=== PATIENT | female | born 1955 | race Caucasian/White ===

== ENCOUNTER 2016-12-22 12:29 | Outpatient (RCR) | payer MEDICARE ==
[~2016-12-22 12:29] MED LIST: ATIV1TAB10 PO; COUM2.5T11 PO; DRIS50002 PO; LEVO75TA4 PO; MULT1CHW26 PO; NICO21DI TD; PERC5TAB6 PO; PRENTAB9 PO; SYNT50TA PO; TRAM50TA2 PO; VICO5TA PO; VICO5TAB16 PO; WARF-23 PO
== END 2016-12-26 ==
LOC: M PT 12:29
PROVIDERS: ATTEND Orthopaedic Surgery
DX: Z51.89 Encounter for other specified aftercare (principal); S72.002D Fracture of unspecified part of neck of left femur, subsequent encounter for closed fracture with routine healing
CPT/HCPCS: 97110; 97116; 97161; G8978; G8979

== ENCOUNTER 2017-01-22 13:00 | Outpatient (RCR) | payer MEDICARE | END 2017-01-23 | LOC: M PT 13:00 | PROVIDERS: ATTEND Orthopaedic Surgery | DX: S72.002D Fracture of unspecified part of neck of left femur, subsequent encounter for closed fracture with routine healing (principal); X58.XXXD Exposure to other specified factors, subsequent encounter; Y93.9 Activity, unspecified; Y92.9 Unspecified place or not applicable; Y99.8 Other external cause status ==

== ENCOUNTER 2017-02-21 13:45 | Outpatient (RCR) | payer MEDICARE | END 2017-02-23 | LOC: M PT 13:45 | PROVIDERS: ATTEND Orthopaedic Surgery | DX: S72.002D Fracture of unspecified part of neck of left femur, subsequent encounter for closed fracture with routine healing (principal); X58.XXXD Exposure to other specified factors, subsequent encounter; Y93.9 Activity, unspecified; Y92.9 Unspecified place or not applicable; Y99.8 Other external cause status | CPT/HCPCS: 97110; 97116; G8978; G8979 ==

== ENCOUNTER 2017-03-23 13:45 | Outpatient (RCR) | payer MEDICARE | END 2017-03-25 | LOC: M PT 13:45 | PROVIDERS: ATTEND Orthopaedic Surgery | DX: S72.002A Fracture of unspecified part of neck of left femur, initial encounter for closed fracture (principal); X58.XXXA Exposure to other specified factors, initial encounter; Y93.9 Activity, unspecified; Y92.9 Unspecified place or not applicable; Y99.8 Other external cause status | CPT/HCPCS: 97110; 97116; G8978; G8979 ==

== ENCOUNTER 2017-04-18 13:36 | Outpatient (RCR) | payer MEDICARE | END 2017-04-25 | LOC: M PT 13:36 | PROVIDERS: ATTEND Orthopaedic Surgery | DX: S72.002D Fracture of unspecified part of neck of left femur, subsequent encounter for closed fracture with routine healing (principal); X58.XXXD Exposure to other specified factors, subsequent encounter; Y93.9 Activity, unspecified; Y92.9 Unspecified place or not applicable; Y99.8 Other external cause status | CPT/HCPCS: 97110; 97116; G8978; G8979 ==

== ENCOUNTER 2017-05-23 13:45 | Outpatient (RCR) | payer MEDICARE ==
[~2017-05-23 13:45] MED LIST changes: -COUM2.5T11 PO; +COUM2.5T17 PO; +PERC5TAB12 PO; -PERC5TAB6 PO
== END 2017-05-25 ==
LOC: M PT 13:45
PROVIDERS: ATTEND Orthopaedic Surgery
DX: S72.002D Fracture of unspecified part of neck of left femur, subsequent encounter for closed fracture with routine healing (principal); X58.XXXD Exposure to other specified factors, subsequent encounter; Y93.9 Activity, unspecified; Y92.9 Unspecified place or not applicable; Y99.8 Other external cause status
CPT/HCPCS: 97110; 97116; 97164; G8978; G8979

== ENCOUNTER → 2017-06-25 | Outpatient (RCR) | payer MEDICARE, SELFPAY | END | disposition home or self-care (01) | LOC: M PT 06-04 15:07 | PROVIDERS: ATTEND Orthopaedic Surgery | DX: Z51.89 Encounter for other specified aftercare (principal); S72.002D Fracture of unspecified part of neck of left femur, subsequent encounter for closed fracture with routine healing; X58.XXXD Exposure to other specified factors, subsequent encounter; Y93.9 Activity, unspecified; Y92.9 Unspecified place or not applicable; Y99.8 Other external cause status ==

== ENCOUNTER 2017-06-26 13:48 | Outpatient (RCR) | payer MEDICARE, SELFPAY | END 2017-07-26 | LOC: M PT 13:48 | PROVIDERS: ATTEND Orthopaedic Surgery | DX: S72.002D Fracture of unspecified part of neck of left femur, subsequent encounter for closed fracture with routine healing (principal); Z88.5 Allergy status to narcotic agent; X58.XXXD Exposure to other specified factors, subsequent encounter; Y93.9 Activity, unspecified; Y92.9 Unspecified place or not applicable; Y99.8 Other external cause status | CPT/HCPCS: 97110; 97116; G8978; G8979; G8980 ==

== ENCOUNTER 2017-10-25 16:04 | Emergency (ER) | payer MEDICAID, OTHER, SELFPAY ==
[~2017-10-25] VITALS: Ht 167.6 cm; Wt 50.0 kg
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
[2017-10-25 20:01] VITALS: BP 141/74
== END 2017-10-25 20:07 | disposition home or self-care (01) ==
LOC: M ED 16:04
DX: S80.12XA Contusion of left lower leg, initial encounter (principal); S22.41XA Multiple fractures of ribs, right side, initial encounter for closed fracture; Y00.XXXA Assault by blunt object, initial encounter; Y92.89 Other specified places as the place of occurrence of the external cause; Y93.89 Activity, other specified; Y99.8 Other external cause status; E03.9 Hypothyroidism, unspecified; F41.9 Anxiety disorder, unspecified; M85.9 Disorder of bone density and structure, unspecified; Z79.899 Other long term (current) drug therapy; Z88.5 Allergy status to narcotic agent; F17.210 Nicotine dependence, cigarettes, uncomplicated

== ENCOUNTER → 2017-11-12 | Outpatient (CLI) | payer MEDICARE, OTHER ==
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
== END ==
LOC: M WUC 15:31
PROVIDERS: ATTEND Family Medicine
DX: J44.9 Chronic obstructive pulmonary disease, unspecified (principal)

== ENCOUNTER → 2018-10-18 | Outpatient (CLI) | payer OTHER ==
[2018-10-18 12:51] LABS: HEMATOCRIT 38.3 % (36.0-47.0); HEMOGLOBIN 12.6 g/dl (12.0-15.5); MEAN CORPUSCULAR HEMOGLOBIN 33.5 pg (27.0-33.0); MEAN CORPUSCULAR HGB CONC 32.9 g/dl (32.0-36.5); MEAN CORPUSCULAR VOLUME 101.9 fl (80.0-96.0); PLATELET COUNT, AUTOMATED 473 10^3/uL (150-450); RED BLOOD COUNT 3.76 10^6/uL (4.00-5.40); RED CELL DISTRIBUTION WIDTH 12.7 % (11.5-14.5)
[2018-10-18 13:30] LABS: ALBUMIN 2.1 GM/DL (3.2-5.2); ALBUMIN/GLOBULIN RATIO 0.66 (1.00-1.93); ALKALINE PHOSPHATASE 162 U/L (45-117); ALT/SGPT 34 U/L (12-78); ANION GAP 12 MEQ/L (8-16); AST/SGOT 32 U/L (7-37); BILIRUBIN,TOTAL 0.3 MG/DL (0.2-1.0); BLOOD UREA NITROGEN 7 MG/DL (7-18); CALCIUM LEVEL 9.2 MG/DL (8.8-10.2); CARBON DIOXIDE LEVEL 22 MEQ/L (21-32); CHLORIDE LEVEL 105 MEQ/L (98-107); CHOLESTEROL LEVEL 179 MG/DL (<200); CREATININE FOR GFR 0.46 MG/DL (0.55-1.30); GLOMERULAR FILTRATION RATE > 60.0 (>45); GLUCOSE, FASTING 137 MG/DL (70-100); HDL CHOLESTEROL 57 MG/DL (>40); IRON (FE) 59 UG/DL (50-170); LDL CHOLESTEROL 90 MG/DL (<100); NON-HDL-C 122 MG/DL; PERCENT SATURATION 53.2 % (13.2-45.0); POTASSIUM SERUM 4.5 MEQ/L (3.5-5.1); SODIUM LEVEL 139 MEQ/L (136-145); THYROID STIMULATING HORMONE 0.392 uIU/ML (0.358-3.740); TOTAL 25(OH) VITAMIN D 70.5 NG/ML (30.0-100.0); TOTAL IRON BINDING CAPACITY 111 UG/DL (250-450); TOTAL PROTEIN 5.3 GM/DL (6.4-8.2); TRIGLYCERIDES LEVEL 161 MG/DL (<150)
== END ==
LOC: M WUC 10:43
DX: D64.9 Anemia, unspecified (principal); R53.83 Other fatigue; E03.9 Hypothyroidism, unspecified
CPT/HCPCS: 83550

== ENCOUNTER 2018-12-28 04:23 | Emergency (ER) | payer MEDICARE, OTHER ==
[~2018-12-28] VITALS: Ht 170.2 cm; Wt 40.9 kg
[~2018-12-28 04:23] MED LIST changes: +ALPR0.5T3; -DRIS50002 PO; +DRIS50003 PO; +TRAM50TA2
[2018-12-28 04:56] LABS: VENOUS BASE EXCESS -3.4 (-2.0-2.0); VENOUS O2 SATURATION 91.8 % (60.0-80.0); VENOUS PARTIAL PRESSURE CO2 40.9 mmHg (38.0-50.0); VENOUS PH 7.349 UNITS (7.330-7.430); VENOUS STANDARD HCO3 21.6 MEQ/L; VENOUS TOTAL CO2 23.3 MEQ/L (24.0-28.0)
[2018-12-28 04:58] LABS: CARBOXYHEMOGLOBIN 8.9 % (0.0-1.5)
[2018-12-28] MEDS ORDERED: fentaNYL 100 MCG/2 ML INJECTION (J3010) IV ONE (05:00)
[2018-12-28] MEDS ORDERED: NS 1,000 ML IV ONE (05:00)
[2018-12-28 05:15] VITALS: BP 127/81
[2018-12-28 05:16] LABS: BLOOD UREA NITROGEN 5 MG/DL (7-18); CALCIUM LEVEL 9.2 MG/DL (8.8-10.2); CARBON DIOXIDE LEVEL 24 MEQ/L (21-32); CHLORIDE LEVEL 99 MEQ/L (98-107); CREATININE FOR GFR 0.37 MG/DL (0.55-1.30); ETHYL ALCOHOL (ETHANOL) 0.214 % (0.000-0.010); GLOMERULAR FILTRATION RATE > 60.0 (>45); GLUCOSE, FASTING 178 MG/DL (70-100); POTASSIUM SERUM 3.9 MEQ/L (3.5-5.1); SODIUM LEVEL 133 MEQ/L (136-145)
== END 2018-12-28 05:32 | disposition short-term general hospital (02) ==
LOC: M ED 04:23
DX: T20.312A Burn of third degree of left ear [any part, except ear drum], initial encounter (principal); T20.20XA Burn of second degree of head, face, and neck, unspecified site, initial encounter; X08.8XXA Exposure to other specified smoke, fire and flames, initial encounter; Y92.018 Other place in single-family (private) house as the place of occurrence of the external cause; T31.0 Burns involving less than 10% of body surface; J44.9 Chronic obstructive pulmonary disease, unspecified; Z79.899 Other long term (current) drug therapy; Z79.890 Hormone replacement therapy; Z88.5 Allergy status to narcotic agent; F17.210 Nicotine dependence, cigarettes, uncomplicated
CPT/HCPCS: 80048; 82375; 82803; 96374; 99284; G0480; J3010

== ENCOUNTER 2019-05-10 10:09 | Emergency (ER) | payer MEDICARE ==
[~2019-05-10] VITALS: Ht 170.2 cm; Wt 46.8 kg
[~2019-05-10 10:09] MED LIST changes: -VICO5TAB16 PO; +VICO5TAB17 PO
[2019-05-10] MEDS ORDERED: MELO7.5T35 (10:33)
[2019-05-10] MEDS ORDERED: IBUPROFEN 400 MG TAB PO ONE (11:15)
--- NOTE | 2019-05-10 11:21 | REP ---
RIGHT WRIST SERIES: For views of the right wrist are performed. There is a diffuse osteopenia. There is impacted nondisplaced fracture of the distal radius. Adjacent ulna appears intact. There are moderate degenerative changes with joint space narrowing and subchondral sclerosis between the scaphoid and trapezium as well as between the trapezium and base of first metacarpal. Large spurs are seen at the margins of the joint. IMPRESSION: Nondisplaced fracture distal radius. Electronically Signed by Blaine Morrell MD 05/10/2019 07:26 P
[2019-05-10 11:47] VITALS: BP 124/67
== END 2019-05-10 11:51 | disposition home or self-care (01) ==
LOC: M ED 10:09
DX: S52.502A Unspecified fracture of the lower end of left radius, initial encounter for closed fracture (principal); W01.0XXA Fall on same level from slipping, tripping and stumbling without subsequent striking against object, initial encounter; Y92.018 Other place in single-family (private) house as the place of occurrence of the external cause; J44.9 Chronic obstructive pulmonary disease, unspecified; F10.10 Alcohol abuse, uncomplicated; Z88.5 Allergy status to narcotic agent; F17.210 Nicotine dependence, cigarettes, uncomplicated

== ENCOUNTER 2019-12-26 13:39 | Emergency (ER) | payer MEDICARE ==
[~2019-12-26] VITALS: Ht 170.2 cm; Wt 50.5 kg
[~2019-12-26 13:39] MED LIST changes: +MELO7.5T35
[2019-12-26 15:49] LABS: BASO # 0.1 10^3/uL (0.0-0.2); BASO % 0.9 % (0.0-1.0); EOS # 0.1 10^3/uL (0.0-0.5); EOS % 1.7 % (0.0-3.0); HEMATOCRIT 44.5 % (36.0-47.0); HEMOGLOBIN 14.8 g/dl (12.0-15.5); LYMPH # 1.8 10^3/uL (1.5-5.0); LYMPH % 27.6 % (24.0-44.0); MEAN CORPUSCULAR HEMOGLOBIN 34.2 pg (27.0-33.0); MEAN CORPUSCULAR HGB CONC 33.3 g/dl (32.0-36.5); MEAN CORPUSCULAR VOLUME 102.8 fl (80.0-96.0); MONO # 0.6 10^3/uL (0.0-0.8); MONO % 8.7 % (0.0-5.0); NEUTROPHILS # 3.8 10^3/uL (1.5-8.5); NEUTROPHILS % 60.5 % (36.0-66.0); PLATELET COUNT, AUTOMATED 207 10^3/uL (150-450); RED BLOOD COUNT 4.33 10^6/uL (4.00-5.40); WHITE BLOOD COUNT 6.3 10^3/uL (4.0-10.0)
[2019-12-26 16:11] LABS: BLOOD UREA NITROGEN 5 MG/DL (7-18); C REACTIVE PROTEIN QUANTITATIV 0.99 MG/DL (0.00-0.30); CALCIUM LEVEL 9.5 MG/DL (8.8-10.2); CARBON DIOXIDE LEVEL 25 MEQ/L (21-32); CHLORIDE LEVEL 105 MEQ/L (98-107); CREATININE FOR GFR 0.47 MG/DL (0.55-1.30); GLOMERULAR FILTRATION RATE > 60.0 (>45); GLUCOSE, FASTING 116 MG/DL (70-100); POTASSIUM SERUM 4.1 MEQ/L (3.5-5.1); SODIUM LEVEL 137 MEQ/L (136-145)
[2019-12-26 17:00] LABS: ERYTHROCYTE SEDIMENTATION RATE 5 mm/hr (0-30)
[2019-12-26] MEDS ORDERED: BACITRACIN OINT 30GM TOP PRN (19:30)
[2019-12-26] MEDS ORDERED: ADACEL/BOOSTRIX VACCINE (DIPHTH/PERTUSS/ACELL/TETANUS)0.5ML SYR (90715) IM ONE (19:30)
[2019-12-26] MEDS ORDERED: AUGMENTIN 875 MG TAB PO ONE (19:30)
[2019-12-26] MEDS ORDERED: BACI500O21 TOP (19:38)
[2019-12-26] MEDS ORDERED: IBUP-1022 PO (19:38)
[2019-12-26] MEDS ORDERED: AUGM875T28 PO (19:38)
[2019-12-26 20:40] VITALS: BP 146/79
== END 2019-12-26 20:46 | disposition home or self-care (01) ==
LOC: M ED 13:39
DX: T25.222A Burn of second degree of left foot, initial encounter (principal); T31.0 Burns involving less than 10% of body surface; X12.XXXA Contact with other hot fluids, initial encounter; Y92.099 Unspecified place in other non-institutional residence as the place of occurrence of the external cause; Y93.9 Activity, unspecified; Y99.9 Unspecified external cause status; Z79.899 Other long term (current) drug therapy; Z88.5 Allergy status to narcotic agent
CPT/HCPCS: 36415; 80048; 85025; 85652; 86140; 87040; 99283; G0480

== ENCOUNTER → 2020-03-11 | Outpatient (CLI) | payer MEDICAID, MEDICARE ==
[~2020-03-11] MED LIST changes: +AUGM875T28 PO; +BACI500O21 TOP; +IBUP-1022 PO
[2020-03-11 10:04] LABS: HEMATOCRIT 46.4 % (36.0-47.0); HEMOGLOBIN 15.3 g/dl (12.0-15.5); MEAN CORPUSCULAR HEMOGLOBIN 33.3 pg (27.0-33.0); MEAN CORPUSCULAR VOLUME 101.1 fl (80.0-96.0); PLATELET COUNT, AUTOMATED 201 10^3/uL (150-450); RED BLOOD COUNT 4.59 10^6/uL (4.00-5.40); WHITE BLOOD COUNT 7.6 10^3/uL (4.0-10.0)
[2020-03-11 10:48] LABS: VITAMIN B12 LEVEL 1733 PG/ML (247-911)
[2020-03-11 10:52] LABS: ALBUMIN 3.4 GM/DL (3.2-5.2); ALT/SGPT 33 U/L (12-78); BILIRUBIN,TOTAL 0.5 MG/DL (0.2-1.0); BLOOD UREA NITROGEN 6 MG/DL (7-18); CALCIUM LEVEL 10.1 MG/DL (8.8-10.2); CARBON DIOXIDE LEVEL 27 MEQ/L (21-32); CHLORIDE LEVEL 105 MEQ/L (98-107); CHOLESTEROL LEVEL 237 MG/DL (<200); CHOLESTEROL RISK RATIO 2.521 (<5); CREATININE FOR GFR 0.54 MG/DL (0.55-1.30); GLOMERULAR FILTRATION RATE > 60.0 (>45); GLUCOSE, FASTING 95 MG/DL (70-100); HDL CHOLESTEROL 94 MG/DL (>40); IRON (FE) 114 UG/DL (50-170); LDL CHOLESTEROL 112 MG/DL (<100); NON-HDL-C 143 MG/DL; PERCENT SATURATION 35.1 % (13.2-45.0); POTASSIUM SERUM 4.2 MEQ/L (3.5-5.1); SODIUM LEVEL 139 MEQ/L (136-145); TOTAL IRON BINDING CAPACITY 325 UG/DL (250-450); TOTAL PROTEIN 6.9 GM/DL (6.4-8.2); TRIGLYCERIDES LEVEL 155 MG/DL (<150)
[2020-03-11 11:26] LABS: HEMOGLOBIN A1c 5.2 %
--- NOTE | 2020-03-11 11:48 | REP ---
CHEST, TWO VIEWS: Two views of the chest are performed. COMPARISON: 11/12/2017 and 05/09/2018. There is hyperinflation with mild diffuse interstitial fibrosis. There is no acute infiltrate. The heart is normal in size. There is mild calcification of the thoracic aorta. The mediastinal silhouette is unremarkable and unchanged. There is metallic internal fixation again seen in the proximal left humerus. There is a fracture of the mid shaft of the right clavicle with mild inferior displacement and angulation. This is new since the prior studies. There does appear to be some healing callous formation. IMPRESSION: Stable chronic changes of the lungs. No acute pulmonary disease. Fracture mid right clavicle is slightly displaced and angulated. This is new compared to the prior study of 05/09/2018. There does appear to be healing callous formation. Electronically Signed by Blaine Morrell MD 03/11/2020 02:31 P
== END ==
LOC: M LAB 08:56
PROVIDERS: ATTEND Family Medicine
DX: D64.9 Anemia, unspecified (principal); E11.9 Type 2 diabetes mellitus without complications; R53.83 Other fatigue; E03.9 Hypothyroidism, unspecified

== ENCOUNTER 2020-05-15 17:55 | Emergency (ER) | payer MEDICARE, MEDICAID ==
[~2020-05-15] VITALS: Ht 170.2 cm; Wt 50.0 kg
[2020-05-15] MEDS ORDERED: traMADol 50 MG TAB PO ONE (18:45)
--- NOTE | 2020-05-15 18:51 | REPVR ---
PROCEDURE INFORMATION: Exam: XR Left Ribs with PA Chest, 3 Views Exam date and time: 05/15/2020 6:34 PM Age: 65 years old Clinical indication: Other: Left lateral chest wall pain; Additional info: Left lateral chest wall pain S/P fall TECHNIQUE: Imaging protocol: XR Left ribs 3 views with PA chest. COMPARISON: CR Chest, 2 view PA, Lat 03/11/2020 9:47 AM FINDINGS: Lungs: Unremarkable. No consolidation. Pleural space: Minimal blunting left lateral costophrenic angle. Heart/Mediastinum: Unremarkable. No cardiomegaly. Bones/joints: Surgical hardware noted in the left proximal humerus indicating previous open reduction internal fixation of a left humeral fracture Generalized decrease in bone density. There is pleural thickening in the left lateral hemithorax fractures of the lateral left, 6th, 7th and 8th ribs. Fracture of the right posterior lateral 7th (or 8th) rib. Healed fracture of the right clavicle. IMPRESSION: 1. Acute fractures of the left lateral 6th, 7th and 8th ribs. No pneumothorax 2. Fracture of the right posterior lateral 7th rib (or 8th). Age uncertain Electronically signed by: Melanie Lucas On 05/15/2020 18:51:13 PM
[2020-05-15 19:36] VITALS: BP 128/71
[2020-05-15] MEDS ORDERED: TRAM50TA2 PO (19:45)
== END 2020-05-15 19:57 | disposition home or self-care (01) ==
LOC: M ED 17:55
DX: S22.42XA Multiple fractures of ribs, left side, initial encounter for closed fracture (principal); S22.31XA Fracture of one rib, right side, initial encounter for closed fracture; Z87.81 Personal history of (healed) traumatic fracture; W06.XXXA Fall from bed, initial encounter; Y92.9 Unspecified place or not applicable; Y93.9 Activity, unspecified; Y99.9 Unspecified external cause status; J44.9 Chronic obstructive pulmonary disease, unspecified; Z87.01 Personal history of pneumonia (recurrent); F41.9 Anxiety disorder, unspecified; Z72.0 Tobacco use; Z79.899 Other long term (current) drug therapy

== ENCOUNTER → 2020-07-19 | Outpatient (REF) | payer MEDICARE, MEDICAID | LOC: M LAB REF 10:55 | PROVIDERS: ATTEND Physician Assistant | DX: B07.9 Viral wart, unspecified (principal) ==

== ENCOUNTER 2020-09-13 13:46 | Emergency (ER) | payer MEDICARE, MEDICAID ==
[~2020-09-13] VITALS: Ht 170.2 cm; Wt 50.9 kg
--- NOTE | 2020-09-13 15:07 | REPVR ---
PROCEDURE INFORMATION: Exam: XR Right Ankle Exam date and time: 09/13/2020 2:51 PM Age: 65 years old Clinical indication: Pain and injury or trauma; Fall; Sprain or strain; Ankle; Right; Additional info: Right foot/ankle pain; Fall injury TECHNIQUE: Imaging protocol: XR Right ankle. Views: 3 or more views. COMPARISON: No relevant prior studies available. FINDINGS: Bones/joints: Diffuse osteopenia. There is an ossification adjacent to the tip of the lateral malleolus, measuring approximately 11 mm x 5 mm. This likely represents an avulsion fracture, age indeterminate. No dislocation. Soft tissues: Lateral soft tissue swelling. IMPRESSION: Age-indeterminate avulsion fracture of the tip of the lateral malleolus. This could be further evaluated with CT if clinically warranted. Electronically signed by: Noemy Carballo On 09/13/2020 15:07:01 PM
--- NOTE | 2020-09-13 15:12 | REPVR ---
PROCEDURE INFORMATION: Exam: XR Right Foot Complete Exam date and time: 09/13/2020 2:51 PM Age: 65 years old Clinical indication: Pain and injury or trauma; Fall; Sprain or strain; Foot; Right; Additional info: Right foot/ankle pain; Fall injury TECHNIQUE: Imaging protocol: XR Right foot. Views: 3 or more views. COMPARISON: No relevant prior studies available. FINDINGS: Bones/joints: Diffuse osteopenia. Acute appearing nondisplaced fracture of the 5th proximal phalanx. Minimal degenerative change of the 2nd PIP joint. Ossification adjacent to the lateral malleolus, likely an avulsed fracture fragment, age-indeterminate. No dislocation. Soft tissues: Normal. IMPRESSION: 1. Acute appearing nondisplaced fracture of the 5th proximal phalanx. 2. Age-indeterminate avulsed fracture fragment adjacent to the lateral malleolus. Electronically signed by: Noemy Carballo On 09/13/2020 15:12:20 PM
[2020-09-13 16:16] VITALS: BP 118/74
== END 2020-09-13 14:15 | disposition home or self-care (01) ==
LOC: M ED 13:46
DX: S82.61XA Displaced fracture of lateral malleolus of right fibula, initial encounter for closed fracture (principal); S62.646A Nondisplaced fracture of proximal phalanx of right little finger, initial encounter for closed fracture; W19.XXXA Unspecified fall, initial encounter; Y92.009 Unspecified place in unspecified non-institutional (private) residence as the place of occurrence of the external cause; Y93.9 Activity, unspecified; Y99.9 Unspecified external cause status; K21.9 Gastro-esophageal reflux disease without esophagitis; E03.9 Hypothyroidism, unspecified; Z79.899 Other long term (current) drug therapy

== ENCOUNTER 2020-11-15 14:07 | Emergency (ER) | payer MEDICAID, MEDICARE ==
[~2020-11-15] VITALS: Ht 170.2 cm; Wt 49.5 kg
[~2020-11-15 14:07] MED LIST changes: -ALPR0.5T3; +ALPR0.5T3 PO
[2020-11-15 14:08] VITALS: BP 108/68
--- NOTE | 2020-11-15 15:00 | REP ---
INDICATION: PAIN/SWELLING COMPARISON: None. TECHNIQUE: Four views left hand. FINDINGS: There is fracture at the base of the 4th proximal phalanx with mild lateral displacement. No other acute fracture or dislocation is seen. There is moderate narrowing between scaphoid and adjacent trapezium and trapezoid bones. There is moderate narrowing with subchondral sclerosis and spurring between the trapezium and base of 1st metacarpal. There are mild diffuse arthritic changes at the interphalangeal joints. IMPRESSION: Fracture at the base of the 4th proximal phalanx with mild lateral displacement. <Electronically signed by Blaine Morrell > 11/15/20 [id number]
== END 2020-11-15 18:17 | disposition home or self-care (01) ==
LOC: M ED 14:07
DX: S62.315A Displaced fracture of base of fourth metacarpal bone, left hand, initial encounter for closed fracture (principal); W19.XXXA Unspecified fall, initial encounter; Y92.099 Unspecified place in other non-institutional residence as the place of occurrence of the external cause; Y93.9 Activity, unspecified; Y99.9 Unspecified external cause status; E03.9 Hypothyroidism, unspecified; F41.9 Anxiety disorder, unspecified; J44.9 Chronic obstructive pulmonary disease, unspecified; F17.200 Nicotine dependence, unspecified, uncomplicated; Z79.899 Other long term (current) drug therapy

== ENCOUNTER 2021-01-09 12:50 | Emergency (ER) | payer MEDICARE ==
[~2021-01-09] VITALS: Ht 170.2 cm; Wt 50.5 kg
--- OUTSIDE RECORDS SUMMARY | 2021-01-09 12:56 | CCD ---
Continuity of Care Document (CCD) Created on: 11/29/2020 Luna Davila External Reference #: [id number] : [id number] Sex: Female Author Author Luna MARTINEZ MD Organization Unknown Address [address] [place] [address] Phone [phone] Care Team Providers Care Cook House Laborer Name Role Phone Yosef Otto MD AUTM Unavailable Renzo Hester MD AUTM [phone] Problems Description No Active Problems Social History Type Date Description Comments Sex Unknown ETOH Use Occasionally consumes alcohol Tobacco Use Start: Unknown Patient is a current smoker, smo kes every day smokes 20+ cigarettes a day Smoking Status Reviewed: 05/12/19 Patient is a current smoker, smokes every day smokes 20+ cigarettes a day Allergies, Adverse Reactions, Alerts Description No Known Drug Allergies Medications Active Medications SIG Qnty Indications Ordering Provide r Date Acetaminophen-Codeine #3 300-30mg Tablets Take One Tablet By Mouth Every 12 Hours as Needed For Pain Max Daily Dose Two Tablets 40tabs Paul Han MD 9 Meloxicam 7.5mg Tablets 2 by mouth every day 30tabs S52.531D Silvana Padilla MD 019 Synthroid Tablets Unknown Vitamin D Tablets Unknown Xanax 0.5mg Tablets 1 by mouth 1/2 hour prior to mri Unknown Immunizations Description No Information Available Vital Signs Date Vital Result Comment 05/12/2019 10:47am Body Temperature 98.2 F Height 67 inches 5'7" Weight 105.00 lb BMI (Body Mass Index) 16.4 kg/m2 Results Description No Information Available Procedures Date Code Description Status 11/29/2020 07025 X-Ray Toe(S) Two Views Completed 11/29/2020 18940 X-Ray Foot Complete Completed 11/29/2020 00932 X-Ray Ankle Complete Completed 11/29/2020 13159 FX Metatarsal W/O Manipulation C ompleted 11/29/2020 91748 FX Tarsal Bone W/O Manuplation C ompleted 11/16/2020 80883 X-Ray Hand Three Views Completed 11/16/2020 05854 Apply Cast Short Arm Completed 11/16/2020 15380 FX Phalanx Shaft/Prox/Mid Finger /Thumb W/Manipulation Completed 10/08/2020 78058 X-Ray Foot Complete Completed 10/08/2020 70845 X-Ray Ankle Complete Completed Medical Devices Description No Information Available Encounters Description No Information Available Assessments Date Code Description Provider 11/29/2020 S92.514D Nondisplaced fractur e of proximal phalanx of right lesser toe(s), subsequent encounter for fracture with routine healing Alyssia Martinez MD 11/29/2020 S82.64xD Nondisplaced fractur e of lateral malleolus of right fibula, subsequent encounter for closed fracture with routine healing Alyssia Martinez MD 11/16/2020 S62.615A Displaced fracture o f proximal phalanx of left ring finger, initial encounter for closed fracture Tiffanie Gray PA-C 10/08/2020 S92.514A Nondisplaced fractur e of proximal phalanx of right lesser toe(s), initial encounter for closed fracture Alyssia Martinez MD 10/08/2020 S92.514A Nondisplaced fractur e of proximal phalanx of right lesser toe(s), initial encounter for closed fracture Alyssia Martinez MD 10/08/2020 S82.64xA Nondisplaced fractur e of lateral malleolus of right fibula, initial encounter for closed fracture Alyssia Martinez MD 10/08/2020 S82.64xA Nondisplaced fractur e of lateral malleolus of right fibula, initial encounter for closed fracture Alyssia Martinez MD 10/08/2020 M19.071 Primary osteoarthritis, right an kle and foot Alyssia Martinez MD 10/08/2020 M19.071 Primary osteoarthritis, right an kle and foot Alyssia Martinez MD Plan of Treatment 11/29/2020 - Alyssia Martinez MD* S92.514D Nondisplaced fracture of proximal phalanx of right lesser toe(s), subsequent encounter for fracture with routine healing* Follow up:* 3-4 weeks with [facility] for rt foot re-check w/xrays * S82.64xD Nondisplaced fracture of lateral malleolus of right fibula, subsequent encounter for closed fracture with routine healing Functional Status Description No Information Available Mental Status Description No Information Available Referrals Refer to Dr Reason for Referral Status Appt Date Alyssia Martinez MD RF NO AUTH REQUIRED FOR REF TO [facility] TO TRIAGE STAT NT Created [address] [place] [address] [address] [place] [address] [phone] Alyssia Martinez MD DME [employer] NO AUTH REQ. REF #[id number] AND MONICO BRICEÑO 20% COIN. LS Created [address] [place] [address] [address] [place] [address] [phone]
--- OUTSIDE RECORDS SUMMARY | 2021-01-09 12:56 | CCD ---
Continuity of Care Document (CCD) Created on: 12/13/2020 DavilaLuna orozco External Reference #: [id number] : 1955 Sex: Female Author Author Luna MEDEIROS PA-C Organization Unknown Address [address] [place] [address] Phone [phone] Care Team Providers Care Last Turner Name Role Phone Yosef Otto MD AUTM Unavailable Renzo Hester MD AUTM [phone] Problems Description No Active Problems Social History [...] Available Procedures Date Code Description Status 11/29/2020 23735 X-Ray Toe(S) Two Views Completed 11/29/2020 56444 X-Ray Foot Complete Completed 11/29/2020 29663 X-Ray Ankle Complete Completed 11/16/2020 96578 X-Ray Hand Three Views Completed 11/16/2020 64207 FX Phalanx Shaft/Prox/Mid Finger /Thumb W/Manipulation Completed 10/08/2020 38437 X-Ray Foot Complete Completed 10/08/2020 52788 X-Ray Ankle Complete Completed Medical Devices Description No Information Available Encounters Description No Information Available Assessments Date Code Description Provider 11/29/2020 S92.314D Nondisplaced fractur e of first metatarsal bone, right foot, subsequent encounter for fracture with routine healing Alyssia Brown MD 11/29/2020 S92.324D Nondisplaced fractur e of second metatarsal bone, right foot, subsequent encounter for fracture with routine healing Alyssia Brown MD 11/29/2020 S92.334D Nondisplaced fractur e of third metatarsal bone, right foot, subsequent encounter for fracture with routine healing Alyssia Brown MD 11/29/2020 S92.514D Nondisplaced fractur e of proximal phalanx of right lesser toe(s), subsequent encounter for fracture with routine healing Alyssia Brown MD 11/29/2020 S82.64xD Nondisplaced fractur e of lateral malleolus of right fibula, subsequent encounter for closed fracture with routine healing Alyssia Brown MD 11/16/2020 S62.615A Displaced fracture o f proximal phalanx of left ring finger, initial encounter for closed fracture Tiffanie Medeiros PA-C 10/08/2020 S92.514A Nondisplaced fractur e of proximal phalanx of right lesser toe(s), initial encounter for closed fracture Alyssia Brown MD 10/08/2020 S92.514A Nondisplaced fractur e of proximal phalanx of right lesser toe(s), initial encounter for closed fracture Alyssia Brown MD 10/08/2020 S82.64xA Nondisplaced fractur e of lateral malleolus of right fibula, initial encounter for closed fracture Alyssia Brown MD 10/08/2020 S82.64xA Nondisplaced fractur e of lateral malleolus of right fibula, initial encounter for closed fracture Alyssia Brown MD 10/08/2020 M19.071 Primary osteoarthritis, right an kle and foot Alyssia Brown MD 10/08/2020 M19.071 Primary osteoarthritis, right an kle and foot Alyssia Brown MD Plan of Treatment Future Appointment(s):* 12/20/2020 3:45 pm - Billy Leavitt PA-C at [facility] 07/08/2019 - Paul Han MD* S52.531D Colles' fracture of right radius, subsequent encounter for c* Follow up:* F/U WITH ANM IN 3 WEEKS WITH XRAY OUT OF SPLINT RIGHT WRIST AP-L Functional Status Description No Information Available Mental Status Description No Information Available Referrals Refer to Reason for Referral Status Appt Date Alyssia Brown MD RF NO AUTH REQUIRED FOR REF TO [facility] TO TRIAGE STAT NT Created [address] [facility] [address] [place] [address] [phone] Alyssia Brown MD [facility] [employer] NO AUTH REQ. REF #[id number] AND PER NAVARRO 20% COIN. LS Created [address] [facility] [address] [place] [address] [phone]
--- OUTSIDE RECORDS SUMMARY | 2021-01-09 12:56 | CCD | Continuity of Care Document ---
Author Author Luna MARTINEZ MD Organization Unknown Address [address] [place] [address] Phone [phone] Care Team Providers Care Electro Mechanical Solar Technician Name Role Phone Yosef Otto MD AUTM Unavailable Renzo Hester MD AUTM [phone] Problems Description No Active Problems Social History [...] Information Available Procedures Date Code Description Status 10/08/2020 13253 X-Ray Foot Complete Completed 10/08/2020 69453 X-Ray Ankle Complete Completed Medical Devices Description No Information Available Encounters Description No Information Available Assessments Date Code Description Provider 10/08/2020 S92.514A Nondisplaced fractur e of proximal [...] foot Alyssia Martinez MD Plan of Treatment 07/08/2019 - Paul Han MD* S52.531D Colles' fracture of right radius, subsequent encounter for c* Follow up:* F/U WITH ANM IN 3 WEEKS WITH XRAY OUT OF SPLINT RIGHT WRIST AP-L Functional Status Description No Information Available Mental Status Description No Information Available Referrals Refer to Reason for Referral Status Appt Date Alyssia Martinez MD [facility] [employer] NO AUTH REQ. REF #[id number] AND PER NAVARRO 20% COIN. LS Created [address] [place] [address] [address] [place] [id number] [phone]
--- OUTSIDE RECORDS SUMMARY | 2021-01-09 12:56 | CCD ---
Author Author [facility] Organization [facility] Address Unknown Phone Unavailable Care Team Providers Care Foundry Helper Name Role Phone Toni CANTU MD Unavailable Unavailable Toni CANTU MD Unavailable Unavailable Toni CANTU MD Unavailable Unavailable Toni CANTU MD Unavailable Unavailable Toni CANTU MD Unavailable Unavailable Toni CANTU MD Unavailable Unavailable Toni CANTU MD Unavailable Unavailable Toni CANTU MD Unavailable Unavailable Toni CANTU MD Unavailable Unavailable Toni CANTU MD Unavailable Unavailable Toni CANTU MD Unavailable Unavailable Toni CANTU MD Unavailable Unavailable Toni CANTU MD Unavailable Unavailable Toni CANTU MD Unavailable Unavailable Toni CANTU MD Unavailable Unavailable Toni CANTU MD Unavailable Unavailable Toni CANTU MD Unavailable Unavailable Toni CANTU MD Unavailable Unavailable Toni CANTU MD Unavailable Unavailable Toni CANTU MD Unavailable Unavailable Toni CANTU MD Unavailable Unavailable Toni CANTU MD Unavailable Unavailable Toni CANTU MD Unavailable Unavailable Toni CANTU MD Unavailable Unavailable Toni CANTU MD Unavailable Unavailable Toni CANTU MD Unavailable Unavailable Toni CANTU MD Unavailable Unavailable Toni CANTU MD Unavailable Unavailable Toni CANTU MD Unavailable Unavailable Toni CANTU MD Unavailable Unavailable Toni CANTU MD Unavailable Unavailable Toni CANTU MD Unavailable Unavailable Toni CANTU MD Unavailable Unavailable Toni CANTU MD Unavailable Unavailable Toni CANTU MD Unavailable Unavailable SETTERToni MD Unavailable Unavailable SETTERToni MD Unavailable Unavailable SETTERToni MD Unavailable Unavailable SETTERToni MD Unavailable Unavailable SETTERToni MD Unavailable Unavailable SETTER, Toni SANCHEZ MD Unavailable Unavailable SETTER, Toni SANCHEZ MD Unavailable Unavailable SETTER, Toni SANCHEZ MD Unavailable Unavailable SETTERToni MD Unavailable Unavailable SETTERToni MD Unavailable Unavailable SETTERToni MD Unavailable Unavailable SETTER, Toni SANCHEZ MD Unavailable Unavailable SETTER, Toni SANCHEZ MD Unavailable Unavailable SETTER, Toni SNACHEZ MD Unavailable Unavailable SETTER, Toni SANCHEZ MD Unavailable Unavailable SETTER, Toni SANCHEZ MD Unavailable Unavailable SETTER, Toni SANCHEZ MD Unavailable Unavailable SETTER, Toni SANCHEZ MD Unavailable Unavailable SETTER, Toni SANCHEZ MD Unavailable Unavailable SETTER, Toni SANCHEZ MD Unavailable Unavailable SETTER, Toni SANCHEZ MD Unavailable Unavailable SETTERToni MD Unavailable Unavailable SETTERToni MD Unavailable Unavailable SETTERToni MD Unavailable Unavailable SETTERToni MD Unavailable Unavailable SETTER, Toni SANCHEZ MD Unavailable Unavailable SETTERToni MD Unavailable Unavailable SETTERToni MD Unavailable Unavailable SETTERToni MD Unavailable Unavailable SETTERToni MD Unavailable Unavailable SETTERToni MD Unavailable Unavailable SETTERToni MD Unavailable Unavailable SETTERToni MD Unavailable Unavailable SETTERToni MD Unavailable Unavailable SETTERToni MD Unavailable Unavailable SETTERToni MD Unavailable Unavailable SETTERToni MD Unavailable Unavailable SETTERToni MD Unavailable Unavailable SETTERToni MD Unavailable Unavailable SETTERToni MD Unavailable Unavailable SETTERToni MD Unavailable Unavailable SETTERToni MD Unavailable Unavailable SETTERToni MD Unavailable Unavailable SETTERToni MD Unavailable Unavailable SETTERToni MD Unavailable Unavailable SETTERToni MD Unavailable Unavailable SETTERToni MD Unavailable Unavailable SETTERToin MD Unavailable Unavailable SETTERToni MD Unavailable Unavailable SETTERToni MD Unavailable Unavailable SETTERToni MD Unavailable Unavailable SETTERToni MD Unavailable Unavailable SETTERToni MD Unavailable Unavailable SETTERToni MD Unavailable Unavailable SETTERToni MD Unavailable Unavailable SETTERToni MD Unavailable Unavailable Toni CANTU MD Unavailable Unavailable SETTToni GRIFFITH MD Unavailable Unavailable SETTERToni MD Unavailable Unavailable SETTToni GRIFFITH MD Unavailable Unavailable SETTERToni MD Unavailable Unavailable SETTERToni MD Unavailable Unavailable SETTERToni MD Unavailable Unavailable SETTERToni MD Unavailable Unavailable SETTERToni MD Unavailable Unavailable SETTERToni MD Unavailable Unavailable SETTERToni MD Unavailable Unavailable SETTERToni MD Unavailable Unavailable SETTERToni MD Unavailable Unavailable SETTERToni MD Unavailable Unavailable SETTToni GRIFFITH MD Unavailable Unavailable SETTERToni MD Unavailable Unavailable MARTINEZ, ALYSSIA MD Unavailable Unavailable MARTINEZ, ALYSSIA MD Unavailable Unavailable MARTINEZ, ALYSSIA MD Unavailable Unavailable MARTINEZ, ALYSSIA MD Unavailable Unavailable MARTINEZ, ALYSSIA MD Unavailable Unavailable MARTINEZ, ALYSSIA MD Unavailable Unavailable MARTINEZ, ALYSSIA MD Unavailable Unavailable MARTINEZ, ALYSSIA MD Unavailable Unavailable MARTINEZ, ALYSSIA MD Unavailable Unavailable MARTINEZ, ALYSSIA MD Unavailable Unavailable MARTINEZ, ALYSSIA MD Unavailable Unavailable MARTINEZ, ALYSSIA MD Unavailable Unavailable MARTINEZ, ALYSSIA MD Unavailable Unavailable MARTINEZ, ALYSSIA MD Unavailable Unavailable MARTINEZ, ALYSSIA MD Unavailable Unavailable MARTINEZ, ALYSSIA MD Unavailable Unavailable MARTINEZ, ALYSSIA MD Unavailable Unavailable MARTINEZ, ALYSSIA MD Unavailable Unavailable MARTINEZ, ALYSSIA MD Unavailable Unavailable MARTINEZ, ALYSSIA MD Unavailable Unavailable MARTINEZ, ALYSSIA MD Unavailable Unavailable MARTINEZ, ALYSSIA MD Unavailable Unavailable MARTINEZ, ALYSSIA MD Unavailable Unavailable MARTINEZ, ALYSSIA MD Unavailable Unavailable MARTINEZ, ALYSSIA MD Unavailable Unavailable MARTINEZ, ALYSSIA MD Unavailable Unavailable MARTINEZ, ALYSSIA MD Unavailable Unavailable MARTINEZ, ALYSSIA MD Unavailable Unavailable MARTINEZ, ALYSSIA MD Unavailable Unavailable MARTINEZ, ALYSSIA MD Unavailable Unavailable Re-disclosure Warning The records that you are about to access may contain information from federally-assisted alcohol or drug abuse programs. If such information is present, then the following federally mandated warning applies: This information has been disclosed to you from records protected by federal confidentiality rules (42 CFR part 2). The federal rules prohibit you from making any further disclosure of this information unless further disclosure is expressly permitted by the written consent of the person to whom it pertains or as otherwise permitted by 42 CFR part 2. A general authorization for the release of medical or other information is NOT sufficient for this purpose. The Federal rules restrict any use of the information to criminally investigate or prosecute any alcohol or drug abuse patient.The records that you are about to access may contain highly sensitive health information, the redisclosure of which is protected by Article 27-F of the [facility] Public Health law. If you continue you may have access to information: Regarding HIV / AIDS; Provided by facilities licensed or operated by the [facility] Office of Mental Health; or Provided by the [facility] Office for People With Developmental Disabilities. If such information is present, then the following [facility] mandated warning applies: This information has been disclosed to you from confidential records which are protected by state law. State law prohibits you from making any further disclosure of this information without the specific written consent of the person to whom it pertains, or as otherwise permitted by law. Any unauthorized further disclosure in violation of state law may result in a fine or group home sentence or both. A general authorization for the release of medical or other information is NOT sufficient authorization for further disc losure. Allergies and Adverse Reactions Type Description Substance Reaction Status Data Source(s ) Drug Class NO KNOWN ALLERGIES NO KNOWN ALLERGIES [facility] Family History Family Member Name Family Member Gender Family Member Status Date o f Status Description Data Source(s) Unknown Female Problem [facility] ([facility]) Encounters Encounter Providers Location Date Indications Data Source(s ) Outpatient Referrer: LAURA CANTU MD 12/22/2020 04:5 8:51 PM EST Pain in left hand [facility] Pain in left hand Outpatient Attender: LAURA CANTU MDReferrer: ALYSSIA TEJEDA MD [id number] 12/22/2020 12:00:00 AM EST [facility] Outpatient 04/04/2020 09:31:00 AM EDT [facility] Insurance Providers Payer name Policy type / Coverage type Policy ID Covered constitution party ID Covered constitution party's relationship to desir Policy Desir Plan Information AETNA MEDICARE [id number] SP [id number] AETNA MEDICARE COMPLETE G [id number] Self [id number] AETNA MEDICARE O [id number] S [id number] AETNA MEDICARE COMPLETE G [id number] Self [id number] [place] [id number] SP [id number] MEDICAID M [id number] S [id number] MEDICAID [id number] SP [id number] AETNA MEDICARE [id number] SP [id number] BS Becky Hmo Blue Option Medigap Part B [id number] Self [id number] BS Family Health Plus Medigap Part B [id number] Self [id number] [place] [id number] Self [id number] Humana MCR Adv Medigap Part B [id number] Self [id number] Aetna (MCR) Commercial [id number] Self [id number] [facility] Medicare Dual Complete Medigap Part B [id number] Self [id number] [facility] Community Plan Medigap Part B [id number] Self [id number] BS Becky Hmo Blue Option Medigap Part B [id number] Self [id number] BS Family Health Plus Medigap Part B [id number] Self [id number] [place] [id number] Self [id number] Humana MCR Adv Medigap Part B [id number] Self [id number] Aetna (MCR) Commercial [id number] Self [id number] MEDICAID M [id number] Self [id number] AETNA MEDICARE COMPLETE G [id number] Self [id number] AETNA MEDICARE [id number] SP [id number] HUMANA GOLD [id number] SP [id number] HUMANA GOLD [id number] SP [id number] HUMANA HMO [id number] SP [id number] MEDICARE [id number] SP [id number] A HUMANA HMO [id number] SP [id number] SELF PAY ONLY [id number] SP [id number] BS Becky Hmo Blue Option Medigap Part B [id number] Self [id number] BS Family Health Plus Medigap Part B [id number] Self [id number] [place] Part [place] [id number] Self [id number] [facility] Medicare Dual Complete Commercial [id number] Self [id number] SELF PAY ONLY [id number] SP [id number] MEDICARE [id number] SP [id number] [facility] MCRO [id number] SP [id number] [facility] MCRO [id number] SP [id number] [facility] MCRO [id number] SP [id number] [facility] MCRO [id number] SP [id number] BS Becky Hmo Blue Option Medigap Part B [id number] Self [id number] BS Family Health Plus Medigap Part B [id number] Self [id number] [place] Part [place] [id number] Self [id number] [facility] MCRO [id number] SP [id number] BS Becky Hmo Blue Option Medigap Part B [id number] Self [id number] BS Family Health Plus Medigap Part B [id number] Self [id number] [place] Part [place] [id number] Self [id number] [place] Dual Complete [place] Dual Complete Self [place] Dual Complete BS Beck[place] Hmo Blue Option Medigap Part B [id number] Self [id number] Family Health Plus Medigap Part B Self [place] Medig[place] Part B Self [facility] Community Plan Commercial Self [facility] Medicare Advantage [place] Complete [place] [id number] SP [id number] A UNHC COMMUNITY PLAN MCDO [id number] SP [id number] [facility](MCAID) O [id number] S [id number] UNHC COMMUNITY PLAN MCDHMO [id number] SP [id number] [facility](MCAID) O [id number] S [id number] [facility] P UNAVAILABLE C UNAVAILABLE BLUE CROSS PARIKH PLAN [id number] SP [id number] [employer] BCBS P [id number] S [id number] HMO BLUE [id number] SP [id number] Problems, Conditions, and Diagnoses Code Display Name Description Problem Type Effective Dates Data Source(s) M79.642 Pain in left hand Pain in left hand Diagnosis 12/22 02:00:[address] [facility] Surgeries/Procedures Procedure Description Date Indications Data Source(s) RADEX ANKLE COMPLETE MINIMUM 3 VIEWS 11/29/2020 12:00: 00 AM EST [facility] ([facility]) RADEX FOOT COMPLETE MINIMUM 3 VIEWS 11/29/2020 12:00:0 0 AM EST [facility] ([facility]) RADEX TOE MINIMUM 2 VIEWS 11/29/2020 12:00:00 AM EST [facility] ([facility]) FX Tarsal Bone W/O Manuplation 11/29/2020 12:00:00 AM EST [facility] ([facility]) FX Metatarsal W/O Manipulation 11/29/2020 12:00:00 AM EST [facility] ([facility]) FX Phalanx Shaft/Prox/Mid Finger/Thumb W/Manipulation 11/16/2020 12:00:00 AM EST [facility] ([facility]) RADEX HAND MINIMUM 3 VIEWS 11/16/2020 12:00:00 AM EST [facility] ([facility]) APPLICATION CAST ELBOW FINGER SHORT ARM 11/16/2020 12: 00:00 AM EST [facility] ([facility]) RADEX ANKLE COMPLETE MINIMUM 3 VIEWS 10/08/2020 12:00: 00 AM EST [facility] ([facility]) RADEX FOOT COMPLETE MINIMUM 3 VIEWS 10/08/2020 12:00:0 0 AM EST [facility] ([facility]) Results ID Date Data Source [id number] 12/24/2020 05:31:15 PM EST [facility] Name Value Range Interpretation Code Description Data Edwina rce(s) Supporting Document(s) Progress Note [facility] [id number] [facility] [file] [id number] ID Date Data Source [id number] 12/22/2020 04:58:51 PM [facility] XR HAND 3 OR MORE VIEWS [id number] RESUL TInterpreted by:Parrish Donaldson [facility]linical history: Left ring finger proximal phalanx fractureViews: 4 views left hand in castIndication: Check fracture left handFindings: Patient has normal osseous anatomy the distal forearm bones. Degenerative changes left thumb is noted. Patient is in a short arm cast which does somewhat obscure fine bony detail, however there does appear to be a impacted slightly angulated fracture of the left ring finger proximal phalanx base. Adjacent phalanges appear uninjured.Impression: Impacted slightly angulated fracture of the left ring finger proximal phalanx base in cast.This document has been electronically signed by Parrish Donaldson MD on 12/22/2020 4:56 PM Name Value Range Interpretation Code Description Data Edwina rce(s) Supporting Document(s) ID Date Data Source [id number] 11/09/2020 12:00:00 AM [facility] Alyssia Martinez MD Patient Name: DAVIS MEJIA [facility] Date of : 1955[place] [address] Date of Exam: 11/09/2020#: Fax: [phone] EXAM: MRI FOOT RIGHT WITHOUT CONTRASTCLINICAL INFORMATION: Unspecified sprain right foot.3T multiplanar MRI imaging of the right foot was obtained using varioussequences.Comparison plain films 09/13/2020 [facility].There is focal marrow edema with a thin linear fracture line noted at thebase of the 1st metatarsal. There is more extensive marrow edema involvingthe 2nd and 3rd metatarsal shafts and proximal metatarsals withno ndisplaced fractures of those bones proximally. Mild marrow edema in theproximal half of the 4th metatarsal could represent a bone bruise or asubtle occult fracture. There is a nondisplaced fracture of the cuboidbone. Mild scattered subcortical marrow edema is seen in cuneiform boneswhich could represent bone bruising or could be secondary to arthriticchanges.There is diffuse moderate ill-defined soft tissue edema of the ankle andfoot. The visualized tendons and ligaments appear intact. There is mildfluid surrounding the flexor hallucis longus tendon in the hindfoot whichmay represent mild teno synovitis. Osseous structures are well aligned.The ankle mortise appears unremarkable.IMPRESSION:Nondisplaced fractures at the bases of the 1st through 3rd metatarsals withassociated marrow edema. There is mild marrow edema in the proximal 4thmetatarsal which may represent mild bone bruising or a subtle occultfracture. There is a nondisplaced fracture of the cuboid bone.Accredited by the [employer] in MR.Blaine Morrell, ROBSON/jmcTrosi you for referring AME MEJIA to our office.Electronically Signed - BLAINE MORRELL MD 11/09/20 16:03 Name Value Range Interpretation Code Description Data Edwina rce(s) Supporting Document(s) Procedure
--- OUTSIDE RECORDS SUMMARY | 2021-01-09 12:56 | CCD | Continuity of Care Document ---
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 Name Role Phone Yosef Otto MD AUTM Unavailable Renzo Hester MD AUTM [phone] Problems Description No Active Problems Social History [...] Information Available Procedures Date Code Description Status 11/16/2020 32951 X-Ray Hand Three Views Completed 10/08/2020 79746 X-Ray Foot Complete Completed 10/08/2020 11926 X-Ray Ankle Complete Completed Medical Devices Description No Information Available Encounters Description No Information Available Assessments Date Code Description Provider 11/16/2020 S62.615A Displaced fracture o f proximal [...] Brown MD Plan of Treatment Future Appointment(s):* 11/29/2020 3:00 pm - Alyssia Brown MD at [facility] 11/16/2020 - Tiffanie Medeiros PA-C* S62.615A Displaced fracture of proximal phalanx of left ring finger, initial encounter for closed fracture* New Orders:* Referral, Ordered: 11/16/20 * Follow up:* after referral Functional Status Description No Information Available Mental Status Description No Information Available Referrals Refer to Reason for Referral Status Appt Date Alyssia Brown MD DME [employer] NO AUTH REQ. REF #[id number] AND MONICO BRICEÑO 20% COIN. LS Created [address] [facility] [address] [place] [address] [phone]
--- NOTE | 2021-01-09 13:46 | REP ---
INDICATION: trauma/brusing/swelling. COMPARISON: None. TECHNIQUE: Four views of the left foot are provided. FINDINGS: Four views of the left foot demonstrate marked diffuse osteoporosis. There is moderate soft tissue swelling about the lateral aspect of the midfoot and hindfoot. Dorsal soft tissue swelling is seen diffusely over the forefoot. No soft tissue gas or opaque foreign body is seen. No fracture is noted.. . . IMPRESSION: Marked diffuse osteoporosis and diffuse swelling. No fracture seen.. <Electronically signed by Gigi Larkin > 01/09/21 1633
--- NOTE | 2021-01-09 13:48 | REP ---
INDICATION: trauma/brusing/swelling. COMPARISON: None. TECHNIQUE: Four views of the left ankle. FINDINGS: Four views of the left ankle demonstrate diffuse osteoporosis, marked in degree. There is soft tissue swelling noted extensively about the lateral aspect of the ankle and anteriorly. Ankle mortise is intact. No fracture is visible. No opaque foreign body is seen. IMPRESSION: Marked diffuse osteoporosis. Diffuse soft tissue swelling anterolaterally. No fracture seen. <Electronically signed by Gigi Larkin > 01/09/21 [id number]
--- NOTE | 2021-01-09 13:51 | REP ---
INDICATION: trauma/brusing/swelling. COMPARISON: Comparison radiographs are from 25 October 2017.. TECHNIQUE: Four views of the left knee are provided. No sunrise view is included. FINDINGS: Four views of the left knee demonstrate marked diffuse osteoporosis. There is cortical discontinuity at the medial aspect of the right proximal tibial metaphysis suggesting a right medial tibial plateau fracture. No evidence of joint effusion. No femur or patellar fracture or proximal fibular fracture is seen. There is some mild vascular calcification.. . No opaque foreign body noted. IMPRESSION: Medial tibial plateau fracture. Marked diffuse osteopenia. No other fracture seen.. <Electronically signed by Gigi Larkin > 01/09/21 0818
--- OUTSIDE RECORDS SUMMARY | 2021-01-09 14:26 | CCD ---
Author Author [facility] Organization [facility] Address Unknown Phone Unavailable Care Team Providers Care [place] Name Role Phone Toni CANTU MD Unavailable [...] Unavailable Unavailable MARTINEZ, ALYSSIA MD Unavailable Unavailable MARTNIEZ, ALYSSIA MD Unavailable Unavailable MARTINEZ, ALYSSIA MD [...] is protected by Article 27-F of the [facility] Public Health law. If you continue you may have access to information: Regarding HIV / AIDS; Provided by facilities licensed or operated by the [facility] Office of Mental Health; or Provided by the [facility] Office for People With Developmental Disabilities. If such information is present, then the following [facility] mandated warning applies: This information has [...] law may result in a fine or long term sentence or both. A general authorization for the release of medical or other information is NOT sufficient authorization for further disc losure. Allergies and Adverse Reactions Type Description Substance Reaction Status Data Source(s ) Drug Class NO KNOWN ALLERGIES NO KNOWN ALLERGIES [facility] Family History Family Member Name Family Member Gender Family Member Status Date o f Status Description Data Source(s) Unknown Female Problem [facility] ([facility]) Encounters Encounter Providers Location Date Indications Data Source(s ) Outpatient Referrer: LAURA CANTU MD 12/22/2020 04:5 8:51 PM EST Pain in left hand [facility] Pain in left hand Outpatient Attender: LAURA CANTU MDReferrer: ALYSSIA TEJEDA MD [id number] 12/22/2020 12:00:00 AM EST [facility] Outpatient 04/04/2020 09:31:00 AM EDT [facility] Insurance Providers Payer name Policy type / Coverage type Policy ID Covered alliance party ID Covered alliance party's relationship to desir Policy Desir Plan Information AETNA MEDICARE [id number] SP [id number] AETNA MEDICARE COMPLETE G [id number] Self [id number] AETNA MEDICARE O [id number] S [id number] AETNA MEDICARE COMPLETE G [id number] Self [id number] [place] [id number] SP [id number] MEDICAID M [id number] S [id number] MEDICAID [id number] SP [id number] AETNA MEDICARE [id number] SP [id number] BS Becky Hmo Blue Option Medigap Part B [id number] Self [id number] BS Family Health Plus Medigap Part B [id number] Self [id number] [place] Part B [id number] Self [id number] Humana MCR Adv Medigap Part B [id number] Self [id number] Aetna (MCR) Commercial [id number] Self [id number] [facility] Medicare Dual Complete Medigap Part B [id number] Self [id number] [facility] Community Plan Medigap Part B [id number] Self [id number] BS Becky Hmo Blue Option Medigap Part B [id number] Self [id number] BS Family Health Plus Medigap Part B [id number] Self [id number] [place] [id number] Self [id number] Humana MCR Adv Medigap Part B [id number] Self [id number] Aetna (MCR) Commercial [id number] Self [id number] MEDICAID M [id number] Self [id number] AETNA MEDICARE COMPLETE G [id number] Self [id number] AETNA MEDICARE [id number] SP [id number] HUMANA GOLD [id number] SP [id number] HUMANA GOLD [id number] SP [id number] HUMANA HMO [id number] SP [id number] MEDICARE [id number] SP [id number] A HUMANA HMO [id number] SP [id number] SELF PAY ONLY [id number] SP [id number] BS Becky Hmo Blue Option Medigap Part B [id number] Self [id number] BS Family Health Plus Medigap Part B [id number] Self [id number] [place] Part B [id number] Self [id number] [facility] Medicare Dual Complete Commercial [id number] Self [id number] SELF PAY ONLY [id number] SP [id number] MEDICARE [id number] SP [id number] [facility] MCRO [id number] SP [id number] [facility] MCRO [id number] SP [id number] [facility] MCRO [id number] SP [id number] [facility] MCRO [id number] SP [id number] BS Becky Hmo Blue Option Medigap Part B [id number] Self [id number] BS Family Health Plus Medigap Part B [id number] Self [id number] [place] Part [place] [id number] Self [id number] [facility] MCRO [id number] SP [id number] BS Becky Hmo Blue Option Medigap Part B [id number] Self [id number] BS Family Health Plus Medigap Part B [id number] Self [id number] [place]ig[place] Part [place] [id number] Self [id number] Medicare Dual Complete [place] Dual Complete [place] Dual Complete BS Becky Hmo Blue Option Medigap Part B [id number] Self [id number] BS Family Health Plus Medigap Part B Self [place] Medigap Part B Self [facility] Community Plan Commercial Self [facility] Medicare Advantage [place] Dual Complete [place] Dual Complete MEDIC[place] [id number] SP [id number] A [employer] COMMUNITY PLAN MCDO [id number] SP [id number] [facility](MCAID) O [id number] S [id number] UNHC COMMUNITY PLAN MCDHMO [id number] SP [id number] [facility](MCAID) O [id number] S [id number] [facility] P UNAVAILABLE C UNAVAILABLE BLUE CROSS PARIKH PLAN [id number] SP [id number] [employer] BCBS P [id number] S [id number] HMO BLUE [id number] SP [id number] Problems, Conditions, and Diagnoses Code Display Name Description Problem Type Effective Dates Data Source(s) M79.642 Pain in left hand Pain in left hand Diagnosis 12/22 02:00:08 PM [facility] Surgeries/Procedures Procedure Description Date Indications Data Source(s) RADEX ANKLE COMPLETE MINIMUM 3 VIEWS 11/29/2020 12:00: 00 AM EST [facility]) RADEX FOOT COMPLETE MINIMUM 3 VIEWS 11/29/2020 12:00:0 0 AM EST [facility] ([facility]) RADEX TOE MINIMUM 2 VIEWS 11/29/2020 12:00:00 AM EST [facility] ([facility]) FX Tarsal Bone W/O Manuplation 11/29/2020 12:00:00 AM EST [facility] ([facility]) FX Metatarsal W/O Manipulation 11/29/2020 12:00:00 AM EST [facility] ([facility]) FX Phalanx Shaft/Prox/Mid Finger/Thumb W/Manipulation 11/16/2020 12:00:00 AM EST [facility] ([facility]) RADEX HAND MINIMUM 3 VIEWS 11/16/2020 12:00:00 AM EST [facility] ([facility]) APPLICATION CAST ELBOW FINGER SHORT ARM 11/16/2020 12: 00:00 AM EST [facility] ([facility]) RADEX ANKLE COMPLETE MINIMUM 3 VIEWS 10/08/2020 12:00: 00 AM EST [facility] ([facility]) RADEX FOOT COMPLETE MINIMUM 3 VIEWS 10/08/2020 12:00:0 0 AM EST [facility] ([facility]) Results ID Date Data Source [id number] 12/24/2020 05:31:15 PM EST [facility] Hospital Name Value Range Interpretation Code Description Data Edwina rce(s) Supporting Document(s) Progress Note [facility] [id number] [facility] [file] [id number] ID Date Data Source [id number] 12/22/2020 04:58:51 PM [facility] XR HAND 3 OR MORE VIEWS [id number] RESUL TInterpreted by:Parrish Donaldson [facility] [place] [facility]: Left ring finger proximal phalanx fractureViews: [...] rce(s) Supporting Document(s) ID Date Data Source [id number] 11/09/2020 12:00:00 AM [facility] Alyssia Martinez MD Patient Name: DAVIS MEJIA [facility] Date of : 1955[place] [address] Date of Exam: 11/09/2020#: Fax: [phone] EXAM: MRI FOOT RIGHT WITHOUT CONTRASTCLINICAL INFORMATION: Unspecified sprain right foot.3T multiplanar MRI imaging of the right foot was obtained using varioussequences.Comparison plain films 09/13/2020 [facility].There is focal marrow edema with a thin [...] fracture of the cuboid bone.Accredited by the [employer] in MR.Blaine Morrell, ROBSON/jmcTrosi you for referring AME MEJIA to our office.Electronically Signed - BLAINE MORRELL MD 11/09/20 16:03 Name Value Range Interpretation Code Description Data Edwina rce(s) Supporting Document(s) Procedure
--- NOTE | 2021-01-09 15:03 | REP ---
INDICATION: severe pain and swelling after fall. COMPARISON: Comparison is made with today's radiographs.. TECHNIQUE: Helical scanning is acquired and 2 mm axial images re-formatted. Coronal and sagittal MPR images are provided. 3D surface rendered images are reconstructed and viewed in a rotational configuration. FINDINGS: There is marked diffuse osteoporosis. No tibial or fibular fracture is seen. Talar dome appears intact. No calcaneal or talar fracture is appreciated. Subtalar articulation is unremarkable. Ankle mortise is intact. On soft tissue window settings there is moderate to marked diffuse subcutaneous swelling particularly laterally about the ankle. IMPRESSION: Diffuse osteoporosis. Moderate to marked soft tissue swelling. No fracture seen. <Electronically signed by Gigi Larkin > 01/09/21 1500
--- NOTE | 2021-01-09 15:07 | REP ---
INDICATION: severe pain and swelling after fall. COMPARISON: Comparison is made with today's radiographs.. TECHNIQUE: Helical scanning is acquired and 2 mm axial images are generated. Coronal and sagittal MPR images are generated and reviewed. 3D surface rendered images are reconstructed and viewed rotationally. FINDINGS: Axial images demonstrate no evidence of hindfoot, midfoot or forefoot fracture. There is profound diffuse osteopenia as seen on the radiographs. There is moderate to marked diffuse soft tissue swelling in the subcutaneous fat layer of the dorsal and lateral foot and ankle. Multiplanar reformations images show normal alignment with no evidence of fracture. Surface rendered 3D images are unremarkable. IMPRESSION: Profound diffuse osteopenia. Diffuse soft tissue swelling. No fracture or other acute bony abnormality seen. <Electronically signed by Gigi Larkin > 01/09/21 0689
[2021-01-09 15:42] VITALS: BP 126/74
== END 2021-01-09 15:40 | disposition home or self-care (01) ==
LOC: M ED 12:50
DX: R22.42 Localized swelling, mass and lump, left lower limb (principal); S82.132A Displaced fracture of medial condyle of left tibia, initial encounter for closed fracture; M85.862 Other specified disorders of bone density and structure, left lower leg; M80.072A Age-related osteoporosis with current pathological fracture, left ankle and foot, initial encounter for fracture; W19.XXXA Unspecified fall, initial encounter; Y92.9 Unspecified place or not applicable; Y93.9 Activity, unspecified; Y99.9 Unspecified external cause status; F17.200 Nicotine dependence, unspecified, uncomplicated; Z79.899 Other long term (current) drug therapy

== ENCOUNTER → 2021-09-01 | Outpatient (CLI) | payer MEDICARE ==
--- NOTE | 2021-09-01 15:51 | REP ---
INDICATION: COPD COMPARISON: 03/11/2020 TECHNIQUE: PA and lateral. FINDINGS: COPD and diffuse chronic interstitial changes are appreciated. No acute consolidation or effusion. No pneumothorax. Mediastinum and cardiac silhouette are stable and within normal limits. Skeletal structures demonstrate age-related osteopenia and degenerative changes. IMPRESSION: Stable chronic COPD/interstitial changes. <Electronically signed by Jack Salinas > 09/01/21 [id number]
--- NOTE | 2021-09-01 15:52 | REP ---
INDICATION: COPD COMPARISON: None. TECHNIQUE: Four views of the left hemithorax. FINDINGS: Multiple views of the left hemithorax demonstrate very subtle nondisplaced fractures along the anterolateral margins of the 6th-9th ribs. IMPRESSION: Subtle nondisplaced fractures along the anterolateral margins of the 6th through 9th ribs. <Electronically signed by Jack Salinas > 09/01/21 1546
== END ==
LOC: M RAD 15:16
PROVIDERS: ATTEND Family Medicine
DX: J44.9 Chronic obstructive pulmonary disease, unspecified (principal); J84.9 Interstitial pulmonary disease, unspecified; S22.42XA Multiple fractures of ribs, left side, initial encounter for closed fracture; Y92.9 Unspecified place or not applicable; X58.XXXA Exposure to other specified factors, initial encounter; Y93.9 Activity, unspecified; Y99.9 Unspecified external cause status

== ENCOUNTER → 2021-10-07 | Outpatient (CLI) | payer MEDICARE ==
[2021-10-07 16:12] LABS: HEMATOCRIT 42.9 % (36.0-47.0); MEAN CORPUSCULAR HEMOGLOBIN 33.1 pg (27.0-33.0); MEAN CORPUSCULAR HGB CONC 32.6 g/dl (32.0-36.5); MEAN CORPUSCULAR VOLUME 101.4 fl (80.0-96.0); PLATELET COUNT, AUTOMATED 254 10^3/uL (150-450); RED BLOOD COUNT 4.23 10^6/uL (4.00-5.40); WHITE BLOOD COUNT 7.7 10^3/uL (4.0-10.0)
[2021-10-07 16:52] LABS: ALBUMIN 2.8 GM/DL (3.2-5.2); ALT/SGPT 20 U/L (12-78); BILIRUBIN,TOTAL 0.3 MG/DL (0.2-1.0); BLOOD UREA NITROGEN 5 MG/DL (7-18); CARBON DIOXIDE LEVEL 28 MEQ/L (21-32); CHLORIDE LEVEL 98 MEQ/L (98-107); CHOLESTEROL LEVEL 255 MG/DL (<200); CHOLESTEROL RISK RATIO 2.179 (<5); CREATININE FOR GFR 0.42 MG/DL (0.55-1.30); GLOMERULAR FILTRATION RATE > 60.0 (>45); GLUCOSE, FASTING 98 MG/DL (70-100); HDL CHOLESTEROL 117 MG/DL (>40); LDL CHOLESTEROL 78 MG/DL (<100); NON-HDL-C 138 MG/DL; POTASSIUM SERUM 4.1 MEQ/L (3.5-5.1); SODIUM LEVEL 135 MEQ/L (136-145); TOTAL PROTEIN 6.6 GM/DL (6.4-8.2); TRIGLYCERIDES LEVEL 298 MG/DL (<150)
[2021-10-07 17:18] LABS: HEMOGLOBIN A1c 4.9 %
== END ==
LOC: M LAB 15:37
PROVIDERS: ATTEND Family Medicine
DX: I10 Essential (primary) hypertension (principal); E03.9 Hypothyroidism, unspecified

== ENCOUNTER 2021-11-24 14:50 | Emergency (ER) | payer MEDICARE ==
[2021-11-24 14:50] VITALS: BP 113/86
[2021-11-24] MEDS ORDERED: LEVO50TA5 (15:33)
[2021-11-24] MEDS ORDERED: MORPHINE 4 MG/ML 1ML VIAL/SYRINGE (J2270) IV ONE (16:55)
[2021-11-24] MEDS ORDERED: NS 1,000 ML IV ONE (16:55)
[2021-11-24 17:56] LABS: BASO # 0.1 10^3/uL (0.0-0.2); BASO % 1.1 % (0.0-1.0); EOS % 0.2 % (0.0-3.0); HEMATOCRIT 44.1 % (36.0-47.0); HEMOGLOBIN 14.7 g/dl (12.0-15.5); LYMPH # 1.5 10^3/uL (1.5-5.0); LYMPH % 14.7 % (24.0-44.0); MEAN CORPUSCULAR HEMOGLOBIN 33.9 pg (27.0-33.0); MEAN CORPUSCULAR HGB CONC 33.3 g/dl (32.0-36.5); MEAN CORPUSCULAR VOLUME 101.6 fl (80.0-96.0); NEUTROPHILS # 6.9 10^3/uL (1.5-8.5); NEUTROPHILS % 67.2 % (36.0-66.0); PLATELET COUNT, AUTOMATED 285 10^3/uL (150-450); RED BLOOD COUNT 4.34 10^6/uL (4.00-5.40); WHITE BLOOD COUNT 10.3 10^3/uL (4.0-10.0)
[2021-11-24 18:04] LABS: INR 0.8; PROTHROMBIN TIME 11.5 SECONDS (12.7-14.5)
[2021-11-24 18:05] LABS: ALT/SGPT 24 U/L (12-78); BILIRUBIN,DIRECT 0.3 MG/DL (0.0-0.2); BILIRUBIN,TOTAL 0.4 MG/DL (0.2-1.0); BLOOD UREA NITROGEN 3 MG/DL (7-18); C REACTIVE PROTEIN QUANTITATIV 7.31 MG/DL (0.00-0.30); CALCIUM LEVEL 9.4 MG/DL (8.8-10.2); CARBON DIOXIDE LEVEL 24 MEQ/L (21-32); CHLORIDE LEVEL 96 MEQ/L (98-107); CREATININE FOR GFR 0.39 MG/DL (0.55-1.30); GLOMERULAR FILTRATION RATE > 60.0 (>45); GLUCOSE, FASTING 69 MG/DL (70-100); MAGNESIUM LEVEL 1.9 MG/DL (1.8-2.4); PARTIAL THROMBOPLASTIN TIME 34.4 SECONDS (25.9-37.0); POTASSIUM SERUM 4.5 MEQ/L (3.5-5.1); SODIUM LEVEL 131 MEQ/L (136-145); TOTAL PROTEIN 7.1 GM/DL (6.4-8.2)
[2021-11-24 18:33] LABS: MONO # 1.6 10^3/uL (0.0-0.8)
[2021-11-24 19:01] LABS: ERYTHROCYTE SEDIMENTATION RATE 20 mm/hr (0-30)
[2021-11-24] MEDS ORDERED: cefTRIAXone SOD 1 GM in D5W MINI-BAG PLUS 50 ML IV ONE (19:15)
[2021-11-24] MEDS ORDERED: MUPIROCIN 2% OINT 22 GM TUBE TOP ONE (19:20)
[2021-11-24] MEDS ORDERED: MUPI2OI TOP (20:17)
== END 2021-11-24 21:11 | disposition home or self-care (01) ==
LOC: M ED 14:50
DX: H60.12 Cellulitis of left external ear (principal); T20.212A Burn of second degree of left ear [any part, except ear drum], initial encounter; T20.00XA Burn of unspecified degree of head, face, and neck, unspecified site, initial encounter; X08.8XXA Exposure to other specified smoke, fire and flames, initial encounter; Y92.009 Unspecified place in unspecified non-institutional (private) residence as the place of occurrence of the external cause; Y93.9 Activity, unspecified; Y99.9 Unspecified external cause status; K21.9 Gastro-esophageal reflux disease without esophagitis; E03.9 Hypothyroidism, unspecified; M54.9 Dorsalgia, unspecified; F41.9 Anxiety disorder, unspecified; J44.9 Chronic obstructive pulmonary disease, unspecified; F17.200 Nicotine dependence, unspecified, uncomplicated; Z79.899 Other long term (current) drug therapy
CPT/HCPCS: 16000; 80053; 82248; 82550; 83605; 83735; 85025; 85610; 85652; 85730; 86140; 87040; 96365; 96366; 96375; 99284; J0696; J2270

== ENCOUNTER 2021-11-30 16:19 | Inpatient (IN) | payer MEDICARE ==
[~2021-11-30] VITALS: Ht 170.2 cm; Wt 40.0 kg
[~2021-11-30 16:19] MED LIST changes: +LEVO50TA5 PO; +MUPI2OI TOP
[2021-11-30 19:41] LABS: BASO # 0.1 10^3/uL (0.0-0.2); BASO % 0.4 % (0.0-1.0); EOS % 0.1 % (0.0-3.0); HEMATOCRIT 41.5 % (36.0-47.0); HEMOGLOBIN 14.4 g/dl (12.0-15.5); LYMPH # 1.7 10^3/uL (1.5-5.0); LYMPH % 13.7 % (24.0-44.0); MEAN CORPUSCULAR HEMOGLOBIN 33.5 pg (27.0-33.0); MEAN CORPUSCULAR HGB CONC 34.7 g/dl (32.0-36.5); MEAN CORPUSCULAR VOLUME 96.5 fl (80.0-96.0); MONO # 0.9 10^3/uL (0.0-0.8); MONO % 6.8 % (2.0-8.0); NEUTROPHILS % 78.3 % (36.0-66.0); PLATELET COUNT, AUTOMATED 203 10^3/uL (150-450); WHITE BLOOD COUNT 12.7 10^3/uL (4.0-10.0)
[2021-11-30] MEDS ORDERED: TRAM-533 PO (20:30)
[2021-11-30] MEDS ORDERED: HOME MED LIST COMPLETE! XX SCH (20:30)
[2021-11-30 20:36] LABS: BLOOD UREA NITROGEN 5 MG/DL (7-18); CALCIUM LEVEL 9.6 MG/DL (8.8-10.2); CARBON DIOXIDE LEVEL 25 MEQ/L (21-32); CHLORIDE LEVEL 86 MEQ/L (98-107); CREATININE FOR GFR 0.25 MG/DL (0.55-1.30); GLOMERULAR FILTRATION RATE > 60.0 (>45); GLUCOSE, FASTING 79 MG/DL (70-100); POTASSIUM SERUM 3.3 MEQ/L (3.5-5.1); SODIUM LEVEL 124 MEQ/L (136-145)
[2021-11-30 20:37] LABS: ALBUMIN 2.3 GM/DL (3.2-5.2); ALT/SGPT 25 U/L (12-78); BILIRUBIN,DIRECT 0.2 MG/DL (0.0-0.2); BILIRUBIN,TOTAL 0.5 MG/DL (0.2-1.0); FREE T4 1.15 NG/DL (0.76-1.46); TOTAL PROTEIN 6.4 GM/DL (6.4-8.2)
[2021-11-30] MEDS ORDERED: POTASSIUM CHLORIDE 10MEQ SR TABLET PO ONE (20:40)
[2021-11-30] MEDS ORDERED: AZITHROMYCIN INJ 500 MG, VIAL MATE ADAPTER 1 EACH in NS 250 ML IV ONE (20:45)
[2021-11-30] MEDS ORDERED: cefTRIAXone SOD 1 GM in D5W MINI-BAG PLUS 50 ML IV ONE (20:45)
[2021-11-30 20:55] LABS: RSV AMPLIFICATION NEGATIVE (NEGATIVE)
[2021-11-30] MEDS: ALPRAZolam 0.5 MG TAB PO SCH (21:00)
[2021-11-30] MEDS ORDERED: MOM 30ML SUSPENSION UDC PO PRN (22:40)
[2021-11-30] MEDS ORDERED: ACETAMINOPHEN TAB 650MG DOSE (2X325MG) PO PRN (22:40)
[2021-11-30] MEDS ORDERED: MAALOX 30 ML SUSP *UDC PO PRN (22:40)
[2021-11-30] MEDS ORDERED: VANCOMYCIN HCL 1,000 MG, VIAL MATE ADAPTER 1 EACH in NS 250 ML IV SCH (23:15)
[2021-11-30] MEDS ORDERED: traMADol 50 MG TAB PO PRN (23:20)
[2021-11-30] MEDS ORDERED: ISOVUE-370 76% 100ML VIAL As Ordered ONE (23:22)
[2021-11-30] MEDS ORDERED: NS 1,000 ML IV SCH (23:35)
[2021-11-30] MEDS ORDERED: LORazepam 2 MG TAB PO PRN (23:45)
[2021-11-30 23:55] LABS: ERYTHROCYTE SEDIMENTATION RATE 35 mm/hr (0-30)
[2021-12-01 00:46] LABS: CREATININE,RANDOM URINE 32.4 MG/DL
[2021-12-01] MEDS: PIPERACILLIN/TAZOBACTAM SOD 3.375 GM in D5W MINI-BAG PLUS 50 ML IV SCH ×4 (00:51→18:27)
[2021-12-01] MEDS: LEVOTHYROXINE 50MCG TABLET (0.05MG) PO SCH (05:52)
[2021-12-01] MEDS: HEPARIN SOD (PORCINE) 5000UNITS/ML 1ML VIAL/SYRINGE SC SCH ×3 (05:52→22:05)
[2021-12-01] MEDS: MUPIROCIN 2% OINT 22 GM TUBE TOP SCH ×3 (06:00→17:50)
[2021-12-01 07:19] LABS: BASO % 0.3 % (0.0-1.0); HEMATOCRIT 40.9 % (36.0-47.0); HEMOGLOBIN 14.1 g/dl (12.0-15.5); LYMPH # 1.3 10^3/uL (1.5-5.0); LYMPH % 12.3 % (24.0-44.0); MEAN CORPUSCULAR HEMOGLOBIN 33.7 pg (27.0-33.0); MEAN CORPUSCULAR HGB CONC 34.5 g/dl (32.0-36.5); MEAN CORPUSCULAR VOLUME 97.8 fl (80.0-96.0); MONO % 8.9 % (2.0-8.0); NEUTROPHILS # 8.5 10^3/uL (1.5-8.5); NEUTROPHILS % 77.6 % (36.0-66.0); PLATELET COUNT, AUTOMATED 229 10^3/uL (150-450); RED BLOOD COUNT 4.18 10^6/uL (4.00-5.40); WHITE BLOOD COUNT 10.9 10^3/uL (4.0-10.0)
[2021-12-01 07:44] LABS: ALT/SGPT 23 U/L (12-78); BILIRUBIN,TOTAL 0.5 MG/DL (0.2-1.0); BLOOD UREA NITROGEN 5 MG/DL (7-18); CALCIUM LEVEL 9.7 MG/DL (8.8-10.2); CARBON DIOXIDE LEVEL 29 MEQ/L (21-32); CHLORIDE LEVEL 93 MEQ/L (98-107); CREATININE FOR GFR 0.23 MG/DL (0.55-1.30); GLOMERULAR FILTRATION RATE > 60.0 (>45); GLUCOSE, FASTING 66 MG/DL (70-100); MAGNESIUM LEVEL 1.9 MG/DL (1.8-2.4); POTASSIUM SERUM 4.2 MEQ/L (3.5-5.1); SODIUM LEVEL 129 MEQ/L (136-145)
[2021-12-01] MEDS: CIPRODEX OTIC SUSP 7.5ML AS SCH ×2 (08:00→09:00)
[2021-12-01] MEDS ORDERED: GLUCAGON INJ 1MG VIAL SC PRN (08:25)
[2021-12-01] MEDS ORDERED: GLUCOSE 4GM CHEW TABLET PO PRN (08:25)
[2021-12-01] MEDS ORDERED: DEXTROSE 50% 50 ML SYRINGE IV PRN (08:25)
[2021-12-01] MEDS: D5W/0.9% SODIUM CHLORIDE 1,000 ML IV SCH ×2 (08:26→18:28)
[2021-12-01] MEDS ORDERED: DEXTROSE 50% 50 ML SYRINGE As Ordered ONE (08:28)
[2021-12-01] MEDS: THIAMINE 100 MG TAB PO SCH ×2 (09:00→22:03)
[2021-12-01] MEDS: MULTIVITAMINS/MINERALS THERAP 1 TAB PO SCH (09:00)
[2021-12-01] MEDS: ALPRAZolam 0.5 MG TAB PO SCH ×3 (09:00→22:02)
[2021-12-01] MEDS: FOLIC ACID 1 MG TAB PO SCH (09:00)
[2021-12-01] MEDS ORDERED: VANCOMYCIN HCL 750 MG, VIAL MATE ADAPTER 1 EACH in NS 250 ML IV ONE ×4 (12:00)
[2021-12-01] MEDS ORDERED: VANCOMYCIN HCL 750 MG, VIAL MATE ADAPTER 1 EACH in NS 250 ML IV SCH (14:00)
[2021-12-01] MEDS: VANCOMYCIN HCL 750 MG, VIAL MATE ADAPTER 1 EACH in NS 250 ML IV SCH (19:56)
[2021-12-02] VITALS (12 sets, daily range): BP systolic 91–179; BP diastolic 52–98
[2021-12-02] MEDS: PIPERACILLIN/TAZOBACTAM SOD 3.375 GM in D5W MINI-BAG PLUS 50 ML IV SCH ×4 (00:55→18:46)
[2021-12-02] MEDS: VANCOMYCIN HCL 750 MG, VIAL MATE ADAPTER 1 EACH in NS 250 ML IV SCH ×3 (03:42→20:05)
[2021-12-02] MEDS: THIAMINE 100 MG TAB PO SCH ×2 (08:00→20:45)
[2021-12-02] MEDS: MULTIVITAMINS/MINERALS THERAP 1 TAB PO SCH (08:00)
[2021-12-02] MEDS: ALPRAZolam 0.5 MG TAB PO SCH ×3 (08:00→20:45)
[2021-12-02] MEDS: FOLIC ACID 1 MG TAB PO SCH (08:00)
[2021-12-02] MEDS: LEVOTHYROXINE 50MCG TABLET (0.05MG) PO SCH (08:00)
[2021-12-02] MEDS: HEPARIN SOD (PORCINE) 5000UNITS/ML 1ML VIAL/SYRINGE SC SCH ×3 (08:00→20:45)
[2021-12-02] MEDS: MUPIROCIN 2% OINT 22 GM TUBE TOP SCH ×5 (08:01→20:47)
[2021-12-02] MEDS: D5W/0.9% SODIUM CHLORIDE 1,000 ML IV SCH ×3 (09:36→23:46)
[2021-12-02] MEDS: CIPRODEX OTIC SUSP 7.5ML AS SCH ×2 (13:55→20:45)
[2021-12-02 16:07] LABS: HEMATOCRIT 39.1 % (36.0-47.0); HEMOGLOBIN 13.1 g/dl (12.0-15.5); MEAN CORPUSCULAR HGB CONC 33.5 g/dl (32.0-36.5); MEAN CORPUSCULAR VOLUME 98.5 fl (80.0-96.0); PLATELET COUNT, AUTOMATED 263 10^3/uL (150-450); RED BLOOD COUNT 3.97 10^6/uL (4.00-5.40); WHITE BLOOD COUNT 8.9 10^3/uL (4.0-10.0)
[2021-12-02 16:32] LABS: BLOOD UREA NITROGEN 2 MG/DL (7-18); CALCIUM LEVEL 9.2 MG/DL (8.8-10.2); CARBON DIOXIDE LEVEL 28 MEQ/L (21-32); CHLORIDE LEVEL 105 MEQ/L (98-107); CREATININE FOR GFR 0.35 MG/DL (0.55-1.30); GLOMERULAR FILTRATION RATE > 60.0 (>45); GLUCOSE, FASTING 179 MG/DL (70-100); MAGNESIUM LEVEL 1.7 MG/DL (1.8-2.4); POTASSIUM SERUM 3.3 MEQ/L (3.5-5.1); SODIUM LEVEL 139 MEQ/L (136-145)
[2021-12-03] MEDS: PIPERACILLIN/TAZOBACTAM SOD 3.375 GM in D5W MINI-BAG PLUS 50 ML IV SCH ×4 (02:02→18:56)
[2021-12-03] MEDS: VANCOMYCIN HCL 750 MG, VIAL MATE ADAPTER 1 EACH in NS 250 ML IV SCH ×2 (04:29→16:10)
[2021-12-03] MEDS: HEPARIN SOD (PORCINE) 5000UNITS/ML 1ML VIAL/SYRINGE SC SCH ×3 (05:15→21:19)
[2021-12-03] MEDS: LEVOTHYROXINE 50MCG TABLET (0.05MG) PO SCH (05:15)
[2021-12-03] MEDS: MUPIROCIN 2% OINT 22 GM TUBE TOP SCH ×3 (05:16→18:08)
[2021-12-03 06:00] VITALS: BP_SYST 127; BP_SYST 142; BP_DIAS 78; BP_DIAS 86
[2021-12-03 06:40] LABS: HEMOGLOBIN 12.1 g/dl (12.0-15.5); MEAN CORPUSCULAR HEMOGLOBIN 33.2 pg (27.0-33.0); MEAN CORPUSCULAR HGB CONC 33.6 g/dl (32.0-36.5); MEAN CORPUSCULAR VOLUME 98.9 fl (80.0-96.0); PLATELET COUNT, AUTOMATED 294 10^3/uL (150-450); RED BLOOD COUNT 3.64 10^6/uL (4.00-5.40); WHITE BLOOD COUNT 5.9 10^3/uL (4.0-10.0)
[2021-12-03 07:05] LABS: BLOOD UREA NITROGEN 2 MG/DL (7-18); CALCIUM LEVEL 8.7 MG/DL (8.8-10.2); CARBON DIOXIDE LEVEL 30 MEQ/L (21-32); CHLORIDE LEVEL 105 MEQ/L (98-107); CREATININE FOR GFR 0.32 MG/DL (0.55-1.30); GLOMERULAR FILTRATION RATE > 60.0 (>45); GLUCOSE, FASTING 110 MG/DL (70-100); POTASSIUM SERUM 2.5 MEQ/L (3.5-5.1); SODIUM LEVEL 141 MEQ/L (136-145)
[2021-12-03] MEDS ORDERED: MAG SULF 1GM/100ML (MAG RUN) 1 GM in IV 1 EA IV ONE (09:00)
[2021-12-03] MEDS: CIPRODEX OTIC SUSP 7.5ML AS SCH ×2 (09:20→21:18)
[2021-12-03] MEDS: ALPRAZolam 0.5 MG TAB PO SCH ×3 (09:20→21:18)
[2021-12-03] MEDS: MULTIVITAMINS/MINERALS THERAP 1 TAB PO SCH (09:20)
[2021-12-03] MEDS: FOLIC ACID 1 MG TAB PO SCH (09:20)
[2021-12-03] MEDS: THIAMINE 100 MG TAB PO SCH ×2 (09:20→21:18)
[2021-12-03] MEDS ORDERED: KCL 10MEQ/100ML SWI (KRUN) 10 MEQ in IV 1 EA IV SCH (10:00)
[2021-12-03] MEDS ORDERED: POTASSIUM CHLORIDE 10MEQ SR TABLET PO ONE ×2 (12:00→16:00)
[2021-12-03] MEDS: KCL 20MEQ IN D5/NS 1000ML 1,000 ML IV SCH ×2 (12:02→21:19)
[2021-12-03 14:00] VITALS: BP 134/77
[2021-12-03 16:52] LABS: BLOOD UREA NITROGEN 4 MG/DL (7-18); CALCIUM LEVEL 9.5 MG/DL (8.8-10.2); CARBON DIOXIDE LEVEL 31 MEQ/L (21-32); CHLORIDE LEVEL 106 MEQ/L (98-107); CREATININE FOR GFR 0.48 MG/DL (0.55-1.30); GLOMERULAR FILTRATION RATE > 60.0 (>45); GLUCOSE, FASTING 127 MG/DL (70-100); POTASSIUM SERUM 2.9 MEQ/L (3.5-5.1); SODIUM LEVEL 142 MEQ/L (136-145)
[2021-12-03] MEDS: LACTOBACILLUS ACIDOPHILUS CAP (BACID) PO SCH (18:56)
[2021-12-03 22:00] VITALS: BP_SYST 110; BP_SYST 134; BP_DIAS 66; BP_DIAS 77
[2021-12-04] MEDS: PIPERACILLIN/TAZOBACTAM SOD 3.375 GM in D5W MINI-BAG PLUS 50 ML IV SCH ×4 (00:34→18:39)
[2021-12-04] MEDS: MUPIROCIN 2% OINT 22 GM TUBE TOP SCH ×4 (00:34→18:05)
[2021-12-04] MEDS: VANCOMYCIN HCL 750 MG, VIAL MATE ADAPTER 1 EACH in NS 250 ML IV SCH ×2 (04:01→16:36)
[2021-12-04] MEDS: HEPARIN SOD (PORCINE) 5000UNITS/ML 1ML VIAL/SYRINGE SC SCH ×3 (05:11→20:34)
[2021-12-04] MEDS: LEVOTHYROXINE 50MCG TABLET (0.05MG) PO SCH (05:11)
[2021-12-04 06:00] VITALS: BP_SYST 110; BP_SYST 111; BP_DIAS 62; BP_DIAS 66
[2021-12-04 06:09] LABS: HEMATOCRIT 35.6 % (36.0-47.0); HEMOGLOBIN 11.7 g/dl (12.0-15.5); MEAN CORPUSCULAR HEMOGLOBIN 32.9 pg (27.0-33.0); MEAN CORPUSCULAR HGB CONC 32.9 g/dl (32.0-36.5); PLATELET COUNT, AUTOMATED 325 10^3/uL (150-450); RED BLOOD COUNT 3.56 10^6/uL (4.00-5.40); WHITE BLOOD COUNT 6.7 10^3/uL (4.0-10.0)
[2021-12-04 06:15] LABS: BLOOD UREA NITROGEN 4 MG/DL (7-18); CALCIUM LEVEL 9.1 MG/DL (8.8-10.2); CARBON DIOXIDE LEVEL 26 MEQ/L (21-32); CHLORIDE LEVEL 110 MEQ/L (98-107); CREATININE FOR GFR 0.46 MG/DL (0.55-1.30); GLOMERULAR FILTRATION RATE > 60.0 (>45); GLUCOSE, FASTING 101 MG/DL (70-100); POTASSIUM SERUM 3.2 MEQ/L (3.5-5.1); SODIUM LEVEL 142 MEQ/L (136-145)
[2021-12-04] MEDS ORDERED: POTASSIUM CHLORIDE 10MEQ SR TABLET PO ONE (09:00)
[2021-12-04] MEDS: ALPRAZolam 0.5 MG TAB PO SCH ×3 (09:28→20:33)
[2021-12-04] MEDS: LACTOBACILLUS ACIDOPHILUS CAP (BACID) PO SCH ×3 (09:28→18:05)
[2021-12-04] MEDS: MULTIVITAMINS/MINERALS THERAP 1 TAB PO SCH (09:28)
[2021-12-04] MEDS: FOLIC ACID 1 MG TAB PO SCH (09:28)
[2021-12-04] MEDS: KCL 20MEQ IN D5/NS 1000ML 1,000 ML IV SCH (09:29)
[2021-12-04] MEDS: CIPRODEX OTIC SUSP 7.5ML AS SCH ×2 (09:30→20:34)
[2021-12-04 14:00] VITALS: BP 111/68
[2021-12-04 19:15] VITALS: BP 126/95
[2021-12-05] MEDS: PIPERACILLIN/TAZOBACTAM SOD 3.375 GM in D5W MINI-BAG PLUS 50 ML IV SCH ×4 (00:34→18:31)
[2021-12-05] MEDS: MUPIROCIN 2% OINT 22 GM TUBE TOP SCH ×4 (00:35→17:07)
[2021-12-05] MEDS: VANCOMYCIN HCL 750 MG, VIAL MATE ADAPTER 1 EACH in NS 250 ML IV SCH ×2 (03:32→17:07)
[2021-12-05] MEDS: HEPARIN SOD (PORCINE) 5000UNITS/ML 1ML VIAL/SYRINGE SC SCH ×3 (05:22→22:00)
[2021-12-05] MEDS: LEVOTHYROXINE 50MCG TABLET (0.05MG) PO SCH (05:22)
[2021-12-05 05:25] LABS: HEMOGLOBIN 11.5 g/dl (12.0-15.5); MEAN CORPUSCULAR HEMOGLOBIN 33.7 pg (27.0-33.0); MEAN CORPUSCULAR HGB CONC 33.8 g/dl (32.0-36.5); MEAN CORPUSCULAR VOLUME 99.7 fl (80.0-96.0); PLATELET COUNT, AUTOMATED 352 10^3/uL (150-450); RED BLOOD COUNT 3.41 10^6/uL (4.00-5.40); WHITE BLOOD COUNT 7.7 10^3/uL (4.0-10.0)
[2021-12-05 05:43] LABS: BLOOD UREA NITROGEN 4 MG/DL (7-18); CARBON DIOXIDE LEVEL 27 MEQ/L (21-32); CHLORIDE LEVEL 108 MEQ/L (98-107); CREATININE FOR GFR 0.44 MG/DL (0.55-1.30); GLOMERULAR FILTRATION RATE > 60.0 (>45); GLUCOSE, FASTING 93 MG/DL (70-100); POTASSIUM SERUM 3.3 MEQ/L (3.5-5.1); SODIUM LEVEL 140 MEQ/L (136-145)
[2021-12-05 06:00] VITALS: BP 135/79
[2021-12-05] MEDS: MULTIVITAMINS/MINERALS THERAP 1 TAB PO SCH (08:25)
[2021-12-05] MEDS: LACTOBACILLUS ACIDOPHILUS CAP (BACID) PO SCH ×3 (08:25→17:08)
[2021-12-05] MEDS ORDERED: POTASSIUM CHLORIDE 10MEQ SR TABLET PO ONE (08:25)
[2021-12-05] MEDS: ALPRAZolam 0.5 MG TAB PO SCH ×3 (08:25→21:00)
[2021-12-05] MEDS: FOLIC ACID 1 MG TAB PO SCH (08:26)
[2021-12-05] MEDS: CIPRODEX OTIC SUSP 7.5ML AS SCH ×2 (08:27→21:00)
[2021-12-05 08:39] LABS: MAGNESIUM LEVEL 1.6 MG/DL (1.8-2.4)
[2021-12-05] MEDS ORDERED: MAG SULF 1GM/100ML (MAG RUN) 1 GM in IV 1 EA IV ONE (11:00)
[2021-12-05 14:00] VITALS: BP 141/86
[2021-12-05 19:10] LABS: BODY FLUID CULTURE Not indicated. (.); LEGIONELLA ANTIGEN URINE Negative (Negative); ORGANISM ID Not indicated. (.); SPECIMEN SOURCE Urine (.)
[2021-12-05 22:00] VITALS: BP 151/80
[2021-12-06] MEDS: PIPERACILLIN/TAZOBACTAM SOD 3.375 GM in D5W MINI-BAG PLUS 50 ML IV SCH ×3 (02:09→12:57)
[2021-12-06] MEDS: MUPIROCIN 2% OINT 22 GM TUBE TOP SCH ×3 (02:09→12:57)
[2021-12-06] MEDS: VANCOMYCIN HCL 750 MG, VIAL MATE ADAPTER 1 EACH in NS 250 ML IV SCH ×2 (03:51→15:18)
[2021-12-06 06:13] VITALS: BP 143/78
[2021-12-06 06:14] LABS: HEMATOCRIT 32.7 % (36.0-47.0); HEMOGLOBIN 10.8 g/dl (12.0-15.5); PLATELET COUNT, AUTOMATED 361 10^3/uL (150-450); RED BLOOD COUNT 3.27 10^6/uL (4.00-5.40); WHITE BLOOD COUNT 6.2 10^3/uL (4.0-10.0)
[2021-12-06] MEDS: LEVOTHYROXINE 50MCG TABLET (0.05MG) PO SCH (06:22)
[2021-12-06] MEDS: HEPARIN SOD (PORCINE) 5000UNITS/ML 1ML VIAL/SYRINGE SC SCH ×2 (06:23→15:18)
[2021-12-06 06:42] LABS: BLOOD UREA NITROGEN 5 MG/DL (7-18); CALCIUM LEVEL 8.6 MG/DL (8.8-10.2); CARBON DIOXIDE LEVEL 28 MEQ/L (21-32); CHLORIDE LEVEL 107 MEQ/L (98-107); CREATININE FOR GFR 0.46 MG/DL (0.55-1.30); GLOMERULAR FILTRATION RATE > 60.0 (>45); GLUCOSE, FASTING 86 MG/DL (70-100); POTASSIUM SERUM 4.1 MEQ/L (3.5-5.1); SODIUM LEVEL 142 MEQ/L (136-145)
[2021-12-06] MEDS: CIPRODEX OTIC SUSP 7.5ML AS SCH (09:12)
[2021-12-06] MEDS: FOLIC ACID 1 MG TAB PO SCH (09:12)
[2021-12-06] MEDS: MULTIVITAMINS/MINERALS THERAP 1 TAB PO SCH (09:12)
[2021-12-06] MEDS: LACTOBACILLUS ACIDOPHILUS CAP (BACID) PO SCH ×2 (09:12→12:56)
[2021-12-06] MEDS: ALPRAZolam 0.5 MG TAB PO SCH ×2 (09:12→15:18)
[2021-12-06] MEDS ORDERED: FOLI1TAB11 PO (10:05)
[2021-12-06] MEDS ORDERED: VITMTA PO (10:05)
[2021-12-06] MEDS ORDERED: DOXY100C3 PO (10:05)
[2021-12-06] MEDS ORDERED: RISATAB3 PO (10:05)
[2021-12-06] MEDS ORDERED: CIPR7.5D2 AS (10:05)
[2021-12-06 14:00] VITALS: BP 137/72
[2021-12-07 13:07] LABS: URINE STREP PNEUMONIAE ANTIGEN Positive (Negative)
== END 2021-12-06 16:50 | disposition home health service (06) | DRG 193 ==
LOC: M ED 16:19 → M ED INP 22:39 → ENRESERV 12-02 11:18 → M MSPAV 12-02 16:17
PROVIDERS: ADMIT Family Medicine; ATTEND Internal Medicine Nephrology
DX: J18.9 Pneumonia, unspecified organism (principal); E43 Unspecified severe protein-calorie malnutrition; J44.0 Chronic obstructive pulmonary disease with (acute) lower respiratory infection; E87.1 Hypo-osmolality and hyponatremia; R64 Cachexia; Z68.1 Body mass index [BMI] 19.9 or less, adult; K86.2 Cyst of pancreas; F17.210 Nicotine dependence, cigarettes, uncomplicated; E03.9 Hypothyroidism, unspecified; M54.9 Dorsalgia, unspecified; H60.12 Cellulitis of left external ear; Z99.81 Dependence on supplemental oxygen; F10.10 Alcohol abuse, uncomplicated; E87.6 Hypokalemia; Z20.822 Contact with and (suspected) exposure to COVID-19; Z79.899 Other long term (current) drug therapy; Z91.19 Patient's noncompliance with other medical treatment and regimen; F41.9 Anxiety disorder, unspecified; F32.A Depression, unspecified; T20.012D Burn of unspecified degree of left ear [any part, except ear drum], subsequent encounter; F03.90 Unspecified dementia, unspecified severity, without behavioral disturbance, psychotic disturbance, mood disturbance, and anxiety; M85.88 Other specified disorders of bone density and structure, other site; Z72.89 Other problems related to lifestyle

== ENCOUNTER → 2022-01-24 | Outpatient (CLI) | payer MEDICARE ==
[~2022-01-24] MED LIST changes: +CIPR7.5D2 AS; +DOXY100C3 PO; +E-Z-GAS II EFFERVESCENT PACKET (SODIUM BICARB./CITRIC ACID/SIMETHICONE) As Ordered ONE; +E-Z-HD 98% w/w 340GM SUSP BTL As Ordered ONE; +E-Z-PAQUE 96% w/w SUSP 176GM BTL As Ordered ONE; +FOLI1TAB11 PO; +RISATAB3 PO; +TRAM-533 PO; +VITMTA PO
== END ==
LOC: M RAD 09:30
PROVIDERS: ATTEND Family Medicine
DX: R10.9 Unspecified abdominal pain (principal); R63.4 Abnormal weight loss

== ENCOUNTER 2022-01-29 20:02 | Observation (INO) | payer MEDICARE ==
[~2022-01-29 20:02] MED LIST changes: -E-Z-GAS II EFFERVESCENT PACKET (SODIUM BICARB./CITRIC ACID/SIMETHICONE) As Ordered ONE; -E-Z-HD 98% w/w 340GM SUSP BTL As Ordered ONE; -E-Z-PAQUE 96% w/w SUSP 176GM BTL As Ordered ONE
[2022-01-29 22:44] LABS: BASO # 0.1 10^3/uL (0.0-0.2); BASO % 0.9 % (0.0-1.0); EOS # 0.1 10^3/uL (0.0-0.5); EOS % 0.7 % (0.0-3.0); HEMATOCRIT 40.7 % (36.0-47.0); HEMOGLOBIN 13.2 g/dl (12.0-15.5); LYMPH # 1.7 10^3/uL (1.5-5.0); LYMPH % 24.5 % (24.0-44.0); MEAN CORPUSCULAR HEMOGLOBIN 32.8 pg (27.0-33.0); MEAN CORPUSCULAR HGB CONC 32.4 g/dl (32.0-36.5); MEAN CORPUSCULAR VOLUME 101.2 fl (80.0-96.0); MONO # 1.1 10^3/uL (0.0-0.8); NEUTROPHILS # 4.1 10^3/uL (1.5-8.5); NEUTROPHILS % 58.2 % (36.0-66.0); PLATELET COUNT, AUTOMATED 267 10^3/uL (150-450); RED BLOOD COUNT 4.02 10^6/uL (4.00-5.40)
[2022-01-29 22:54] LABS: INR 0.9; PROTHROMBIN TIME 12.5 SECONDS (12.7-14.5)
[2022-01-29 22:55] LABS: PARTIAL THROMBOPLASTIN TIME 35.2 SECONDS (25.9-37.0)
[2022-01-29] MEDS ORDERED: HEPARIN DRIP 25,000 UNITS in IV 1 EA IV SCH (23:00)
[2022-01-29] MEDS ORDERED: HEPARIN SOD (PORCINE) 5000UNITS/ML 1ML VIAL/SYRINGE IV ONE (23:00)
[2022-01-29] MEDS ORDERED: THERTAB52 PO (23:48)
[2022-01-29] MEDS ORDERED: OMEP-173 PO (23:48)
[2022-01-29] MEDS ORDERED: [UNRECOGNIZED DRUG - CODE] PO (23:49)
[2022-01-29] MEDS ORDERED: HOME MED LIST COMPLETE! XX SCH (23:50)
[2022-01-30 00:54] LABS: ALBUMIN 2.2 GM/DL (3.2-5.2); ALT/SGPT 14 U/L (12-78); BILIRUBIN,DIRECT 0.2 MG/DL (0.0-0.2); BILIRUBIN,TOTAL 0.3 MG/DL (0.2-1.0); BLOOD UREA NITROGEN 7 MG/DL (7-18); CALCIUM LEVEL 8.9 MG/DL (8.8-10.2); CARBON DIOXIDE LEVEL 25 MEQ/L (21-32); CHLORIDE LEVEL 104 MEQ/L (98-107); CREATININE FOR GFR 0.36 MG/DL (0.55-1.30); GLOMERULAR FILTRATION RATE > 60.0 (>45); GLUCOSE, FASTING 75 MG/DL (70-100); POTASSIUM SERUM 4.5 MEQ/L (3.5-5.1); SODIUM LEVEL 138 MEQ/L (136-145); TOTAL PROTEIN 5.5 GM/DL (6.4-8.2)
[2022-01-30 01:05] LABS: RSV AMPLIFICATION NEGATIVE (NEGATIVE)
[2022-01-30] MEDS ORDERED: MAALOX 30 ML SUSP *UDC PO PRN (01:15)
[2022-01-30] MEDS ORDERED: ACETAMINOPHEN TAB 650MG DOSE (2X325MG) PO PRN (01:15)
[2022-01-30] MEDS ORDERED: MOM 30ML SUSPENSION UDC PO PRN (01:15)
[2022-01-30] MEDS ORDERED: ISOVUE-370 76% 100ML VIAL As Ordered ONE (01:41)
[2022-01-30] MEDS ORDERED: traMADol 50 MG TAB PO PRN (02:00)
[2022-01-30] MEDS ORDERED: IPRATROPIUM 0.5MG/ALBUTEROL 2.5MG INH SOL UD 3ML (DUONEB) NEB PRN (02:15)
[2022-01-30] MEDS ORDERED: HEPARIN SOD (PORCINE) 5000UNITS/ML 1ML VIAL/SYRINGE IV PRN (03:50)
[2022-01-30] MEDS ORDERED: HEPARIN DRIP 25,000 UNITS in IV 1 EA IV SCH (03:50)
[2022-01-30 04:36] VITALS: BP 118/62
[2022-01-30] MEDS ORDERED: LEVOTHYROXINE 50MCG TABLET (0.05MG) PO SCH (06:00)
[2022-01-30] MEDS ORDERED: OMEPRAZOLE 20MG CAP PO SCH (09:00)
[2022-01-30] MEDS ORDERED: ALPRAZolam 0.5 MG TAB PO SCH (09:00)
[2022-02-01 10:17] LABS: PTT LUPUS TYPE ANTICOAG SCREEN 1.2 (0-1.2)
[2022-02-01 10:25] LABS: DRVV CONFIRM 41.5 SEC; LUPUS CONFIRM RATIO 1.1
[2022-02-01 10:29] LABS: NORMALIZED RATIO 1.09 (0.00-1.20)
== END 2022-01-30 05:39 | disposition other institution (70) ==
LOC: M ED 20:02 → M ED INP 20:03
PROVIDERS: ADMIT Family Medicine; ATTEND Family Medicine
DX: I82.402 Acute embolism and thrombosis of unspecified deep veins of left lower extremity (principal); F10.10 Alcohol abuse, uncomplicated; J44.9 Chronic obstructive pulmonary disease, unspecified; E03.9 Hypothyroidism, unspecified; K21.9 Gastro-esophageal reflux disease without esophagitis; F41.9 Anxiety disorder, unspecified; G89.29 Other chronic pain; F17.218 Nicotine dependence, cigarettes, with other nicotine-induced disorders; Z79.899 Other long term (current) drug therapy
CPT/HCPCS: 36415; 71275; 74177; 80047; 80048; 80076; 81240; 81241; 83090; 85025; 85300; 85301; 85302; 85305; 85306; 85610; 85613; 85730; 86037; 86038; 86147; 86235; 87631; 93005; 93041; 93971; 94760; 96374; 96376; 99285; G0378; J1644; Q9967

== ENCOUNTER → 2022-03-22 | Outpatient (CLI) | payer MEDICAID, MEDICARE ==
[~2022-03-22] MED LIST changes: +OMEP-173 PO; +THERTAB52 PO; +[UNRECOGNIZED DRUG - CODE] PO
[2022-03-22 13:42] LABS: BLOOD UREA NITROGEN 5 MG/DL (7-18); FREE T4 0.76 NG/DL (0.76-1.46); GLOMERULAR FILTRATION RATE > 60.0 (>45); LIPASE 66 U/L (73-393)
== END ==
LOC: M LAB 11:36
PROVIDERS: ATTEND Internal Medicine Gastroenterology
DX: R19.7 Diarrhea, unspecified (principal); K86.2 Cyst of pancreas

== ENCOUNTER → 2022-03-24 | Outpatient (CLI) | payer MEDICAID, MEDICARE ==
[~2022-03-24] MED LIST changes: +PROHANCE 279.3MG/ML 5ML VIAL As Ordered ONE
== END ==
LOC: M RAD 09:41
PROVIDERS: ATTEND Internal Medicine Gastroenterology
DX: R10.11 Right upper quadrant pain (principal); K86.2 Cyst of pancreas; D37.8 Neoplasm of uncertain behavior of other specified digestive organs; R63.4 Abnormal weight loss; K76.0 Fatty (change of) liver, not elsewhere classified; N28.1 Cyst of kidney, acquired
CPT/HCPCS: 74183; A9576

== ENCOUNTER → 2022-03-30 | Outpatient (CLI) | payer MEDICAID, MEDICARE ==
[~2022-03-30] MED LIST changes: -PROHANCE 279.3MG/ML 5ML VIAL As Ordered ONE; +SYNT25TA PO; +WARF-18 PO
== END ==
LOC: M LABSMTC 10:39
PROVIDERS: ATTEND Anesthesiology
DX: Z01.812 Encounter for preprocedural laboratory examination (principal); Z20.822 Contact with and (suspected) exposure to COVID-19

== ENCOUNTER 2022-04-04 08:54 | Day surgery (SDC) | payer MEDICAID, MEDICARE ==
[~2022-04-04] VITALS: Ht 177.8 cm; Wt 37.2 kg
[~2022-04-04 08:54] MED LIST changes: +NS 1,000 ML IV ONE
[2022-04-04] MEDS ORDERED: propofoL 500 MG/50 ML VIAL As Ordered ONE (09:12)
[2022-04-04] MEDS ORDERED: fentaNYL 100 MCG/2 ML INJECTION As Ordered ONE (09:12)
[2022-04-04] MEDS ORDERED: LIDOCAINE 2% 100MG/5ML SDV (FOR ANES.) As Ordered ONE (09:12)
[2022-04-04] MEDS ORDERED: PHENYLephrine 500MCG 5ML (100MCG/ML) SYRINGE As Ordered ONE (09:58)
[2022-04-04 10:58] VITALS: BP 130/87
== END 2022-04-04 11:17 | disposition home or self-care (01) ==
LOC: M OPP 08:54
PROVIDERS: ATTEND Internal Medicine Gastroenterology
DX: D12.0 Benign neoplasm of cecum (principal); C18.6 Malignant neoplasm of descending colon; C18.7 Malignant neoplasm of sigmoid colon; K56.690 Other partial intestinal obstruction; R63.4 Abnormal weight loss; K62.5 Hemorrhage of anus and rectum; R19.7 Diarrhea, unspecified; K31.89 Other diseases of stomach and duodenum; Z79.01 Long term (current) use of anticoagulants; Z79.899 Other long term (current) drug therapy; Z79.890 Hormone replacement therapy; Z86.718 Personal history of other venous thrombosis and embolism
CPT/HCPCS: 43239; 45380; 45381; 88305; J2370; J3010

== ENCOUNTER → 2022-04-20 | Outpatient (CLI) | payer MEDICARE ==
[~2022-04-20] MED LIST changes: -NS 1,000 ML IV ONE
[2022-04-20 12:42] LABS: BASO # 0.1 10^3/uL (0.0-0.2); BASO % 1.4 % (0.0-1.0); EOS # 0.1 10^3/uL (0.0-0.5); EOS % 1.2 % (0.0-3.0); HEMATOCRIT 39.3 % (36.0-47.0); HEMOGLOBIN 12.6 g/dl (12.0-15.5); LYMPH # 1.7 10^3/uL (1.5-5.0); LYMPH % 30.4 % (24.0-44.0); MEAN CORPUSCULAR HEMOGLOBIN 31.7 pg (27.0-33.0); MEAN CORPUSCULAR HGB CONC 32.1 g/dl (32.0-36.5); MEAN CORPUSCULAR VOLUME 98.7 fl (80.0-96.0); MONO # 0.7 10^3/uL (0.0-0.8); MONO % 11.7 % (2.0-8.0); NEUTROPHILS # 3.1 10^3/uL (1.5-8.5); NEUTROPHILS % 54.9 % (36.0-66.0); PLATELET COUNT, AUTOMATED 263 10^3/uL (150-450); RED BLOOD COUNT 3.98 10^6/uL (4.00-5.40); WHITE BLOOD COUNT 5.6 10^3/uL (4.0-10.0)
[2022-04-20 12:56] LABS: INR 3.96; PROTHROMBIN TIME 38.9 SECONDS (12.7-14.5)
[2022-04-20 13:15] LABS: BLOOD UREA NITROGEN 5 MG/DL (7-18); CALCIUM LEVEL 9.1 MG/DL (8.8-10.2); CARBON DIOXIDE LEVEL 26 MEQ/L (21-32); CHLORIDE LEVEL 105 MEQ/L (98-107); CREATININE FOR GFR 0.38 MG/DL (0.55-1.30); GLOMERULAR FILTRATION RATE > 60.0 (>45); GLUCOSE, FASTING 73 MG/DL (70-100); POTASSIUM SERUM 4.3 MEQ/L (3.5-5.1); SODIUM LEVEL 138 MEQ/L (136-145)
== END ==
LOC: M RAD 11:00
PROVIDERS: ATTEND Physician Assistant
DX: Z01.818 Encounter for other preprocedural examination (principal); J44.9 Chronic obstructive pulmonary disease, unspecified; F17.210 Nicotine dependence, cigarettes, uncomplicated; Z86.718 Personal history of other venous thrombosis and embolism; Z79.01 Long term (current) use of anticoagulants; C18.6 Malignant neoplasm of descending colon

== ENCOUNTER → 2022-04-21 | Outpatient (CLI) | payer MEDICARE | LOC: M LABSMTC 10:03 | PROVIDERS: ATTEND Anesthesiology | DX: Z01.812 Encounter for preprocedural laboratory examination (principal); Z20.822 Contact with and (suspected) exposure to COVID-19 ==

== ENCOUNTER 2022-04-26 11:30 | Day surgery (SDC) | payer MEDICARE ==
[~2022-04-26] VITALS: Ht 167.6 cm; Wt 39.0 kg
[2022-04-26] MEDS ORDERED: fentaNYL 100 MCG/2 ML INJECTION As Ordered ONE (11:33)
[2022-04-26] MEDS ORDERED: MIDAZOLAM INJ 2MG/2ML VIAL (J2250 PER 1MG) As Ordered ONE (11:33)
[2022-04-26] MEDS ORDERED: propofoL 200 MG/20 ML VIAL As Ordered ONE (11:39)
[2022-04-26] MEDS ORDERED: ONDANSETRON 4MG/2ML VIAL As Ordered ONE (11:39)
[2022-04-26] MEDS ORDERED: ROCURONIUM BROMIDE 50 MG/5 ML VIAL As Ordered ONE ×2 (11:39→15:03)
[2022-04-26] MEDS ORDERED: LIDOCAINE 2% 100MG/5ML SDV (FOR ANES.) As Ordered ONE (11:39)
[2022-04-26] MEDS ORDERED: dexameTHASONE 4 MG/ML 1ML VIAL (J1100 PER 1MG) As Ordered ONE (11:39)
[2022-04-26] MEDS ORDERED: NEOM500T PO (12:11)
[2022-04-26] MEDS ORDERED: ALBU8.5H INH (12:11)
[2022-04-26 12:45] LABS: INR 0.9; PROTHROMBIN TIME 12.6 SECONDS (12.7-14.5)
[2022-04-26] MEDS ORDERED: LR 1,000 ML IV SCH ×2 (12:45→15:35)
[2022-04-26] MEDS ORDERED: INSULIN LISPRO (NovoLOG) PER UNIT SC PRN (12:45)
[2022-04-26] MEDS ORDERED: BUPIVACAINE/EPIN 0.25% 30 ML VIAL As Ordered ONE (13:23)
[2022-04-26] MEDS ORDERED: LACRILUBE (AKWA TEARS) OPHTH OINT 3.5 GM As Ordered ONE (13:26)
[2022-04-26] MEDS ORDERED: ERTAPENEM SODIUM 1 GM in NS MINI-BAG PLUS 50 ML IV SCH (14:00)
[2022-04-26] MEDS ORDERED: ERTAPENEM SODIUM 1 GM in NS MINI-BAG PLUS 50 ML IV ONE (14:00)
[2022-04-26] MEDS ORDERED: ACETAMINOPHEN 1000MG 100ML IV BTL (OFIRMEV) (J0131 PER 10MG) As Ordered ONE (14:36)
[2022-04-26] MEDS ORDERED: ePHEDrine SULFATE 25 MG/5 ML(5MG/ML) SYRINGE As Ordered ONE (14:44)
[2022-04-26] MEDS ORDERED: PHENYLephrine 500MCG 5ML (100MCG/ML) SYRINGE As Ordered ONE (14:44)
[2022-04-26] MEDS ORDERED: HYDROmorphone HCL 2MG/ML 1ML VIAL As Ordered ONE (14:54)
[2022-04-26] MEDS ORDERED: SUGAMMADEX SODIUM 500 MG/5 ML VIAL (BRIDION) As Ordered ONE (15:33)
[2022-04-26] MEDS ORDERED: ALBUTEROL SULFATE 2.5 MG/0.5 ML INH NEB SOLN INH ONE (15:35)
[2022-04-26] MEDS ORDERED: MEPERIDINE INJ 25 MG/ML VIAL (J2175) IV PRN (15:35)
[2022-04-26] MEDS ORDERED: HYDROMORPHONE HCL 0.5 MG/ 0.5 ML SYRINGE (J1170 PER 1) IV PRN (15:35)
[2022-04-26] MEDS ORDERED: PROMETHAZINE 25MG/ML 1ML VIAL IV PRN (15:35)
[2022-04-26] MEDS ORDERED: oxyCODONE 5MG TAB PO PRN (15:35)
[2022-04-26] MEDS ORDERED: ONDANSETRON 4MG/2ML VIAL IV PRN (15:35)
[2022-04-26] MEDS ORDERED: NORCO, ANEXSIA 5/325MG TABLET (HYDROcodone/ACETAMINOPHEN) PO PRN (16:20)
[2022-04-26] MEDS ORDERED: OXYC-517 PO (16:44)
[2022-04-26 17:59] VITALS: BP 131/64
== END 2022-04-26 17:59 | disposition home or self-care (01) ==
LOC: UNDOADMIN 11:30 → M SDC 11:30 → M OR 11:30 → EDSTATUS 13:15 → M SDC 17:59
PROVIDERS: ATTEND Surgery
DX: C18.6 Malignant neoplasm of descending colon (principal); E03.9 Hypothyroidism, unspecified; I10 Essential (primary) hypertension; I73.9 Peripheral vascular disease, unspecified; M81.0 Age-related osteoporosis without current pathological fracture; K21.9 Gastro-esophageal reflux disease without esophagitis; R63.4 Abnormal weight loss; F32.A Depression, unspecified; F41.9 Anxiety disorder, unspecified; J44.9 Chronic obstructive pulmonary disease, unspecified; F17.210 Nicotine dependence, cigarettes, uncomplicated; Z79.01 Long term (current) use of anticoagulants; Z79.899 Other long term (current) drug therapy; Z79.51 Long term (current) use of inhaled steroids; F10.10 Alcohol abuse, uncomplicated
CPT/HCPCS: 36415; 49320; 85610; J0131; J1100; J1170; J1335; J2250; J2370; J2405; J3010; S2900

== ENCOUNTER → 2022-05-21 | Outpatient (CLI) | payer MEDICAID, MEDICARE ==
[~2022-05-21] MED LIST changes: +ALBU8.5H INH; +NEOM500T PO; +OXYC-517 PO
== END ==
LOC: M LABSMTC 10:20
PROVIDERS: ATTEND Colon & Rectal Surgery
DX: Z01.812 Encounter for preprocedural laboratory examination (principal); Z20.822 Contact with and (suspected) exposure to COVID-19

== ENCOUNTER → 2022-07-10 | Outpatient (CLI) | payer MEDICARE ==
[2022-07-10 16:57] LABS: BLOOD UREA NITROGEN 3 MG/DL (7-18); CALCIUM LEVEL 9.5 MG/DL (8.8-10.2); CARBON DIOXIDE LEVEL 26 MEQ/L (21-32); CHLORIDE LEVEL 104 MEQ/L (98-107); CREATININE FOR GFR 0.36 MG/DL (0.55-1.30); GLOMERULAR FILTRATION RATE > 60.0 (>45); GLUCOSE, FASTING 48 MG/DL (70-100); POTASSIUM SERUM 4.2 MEQ/L (3.5-5.1); SODIUM LEVEL 134 MEQ/L (136-145)
== END ==
LOC: M LAB 15:31
PROVIDERS: ATTEND Physician Assistant
DX: E03.9 Hypothyroidism, unspecified (principal); E87.6 Hypokalemia; E83.42 Hypomagnesemia

== ENCOUNTER → 2022-07-19 | Outpatient (REF) | payer MEDICARE ==
[~2022-07-19] MED LIST changes: +CAPE1TAB2 PO
[2022-07-19 16:17] LABS: INR 2.26; PROTHROMBIN TIME 25.3 SECONDS (12.7-14.5)
== END ==
LOC: M LAB REF 15:13
PROVIDERS: ATTEND Surgery Vascular Surgery
DX: Z79.01 Long term (current) use of anticoagulants (principal)

== ENCOUNTER → 2022-07-21 | Outpatient (CLI) | payer MEDICARE ==
[~2022-07-21] MED LIST changes: +GASTROGRAFIN SOLUTION 30ML (Q9963) As Ordered ONE; +ISOVUE-370 76% 100ML VIAL As Ordered ONE
== END ==
LOC: M RAD 13:33
PROVIDERS: ATTEND Internal Medicine
DX: C18.9 Malignant neoplasm of colon, unspecified (principal); K86.2 Cyst of pancreas; K76.0 Fatty (change of) liver, not elsewhere classified; Z90.49 Acquired absence of other specified parts of digestive tract
CPT/HCPCS: 74177; Q9963; Q9967

== ENCOUNTER → 2022-07-21 | Outpatient (CLI) | payer MEDICARE ==
[~2022-07-21] MED LIST changes: -GASTROGRAFIN SOLUTION 30ML (Q9963) As Ordered ONE; -ISOVUE-370 76% 100ML VIAL As Ordered ONE
== END ==
LOC: M RAD 13:13
PROVIDERS: ATTEND Physician Assistant
DX: R91.8 Other nonspecific abnormal finding of lung field (principal); R59.0 Localized enlarged lymph nodes; J47.9 Bronchiectasis, uncomplicated; J98.4 Other disorders of lung

== ENCOUNTER → 2022-08-11 | Outpatient (CLI) | payer MEDICARE | LOC: M WHC 15:31 | PROVIDERS: ATTEND Physician Assistant | DX: Z12.31 Encounter for screening mammogram for malignant neoplasm of breast (principal) ==

== ENCOUNTER → 2022-10-09 | Outpatient (CLI) | payer MEDICARE | LOC: M RAD 10:18 | PROVIDERS: ATTEND Internal Medicine | DX: C18.9 Malignant neoplasm of colon, unspecified (principal) | CPT/HCPCS: 78306; A9503 ==

== ENCOUNTER 2022-11-01 16:29 | Inpatient (IN) | payer MEDICARE ==
[~2022-11-01] VITALS: Ht 165.1 cm; Wt 36.0 kg
[2022-11-01] MEDS ORDERED: ONDANSETRON 4MG 2ML VIAL IV ONE (16:50)
[2022-11-01] MEDS ORDERED: NS 1,000 ML IV ONE (16:50)
[2022-11-01 17:43] LABS: BASO # 0.1 10^3/uL (0.0-0.2); EOS % 0.7 % (0.0-3.0); HEMOGLOBIN 9.7 g/dl (12.0-15.5); LYMPH # 1.5 10^3/uL (1.5-5.0); LYMPH % 24.4 % (24.0-44.0); MEAN CORPUSCULAR HEMOGLOBIN 29.4 pg (27.0-33.0); MEAN CORPUSCULAR HGB CONC 31.3 g/dl (32.0-36.5); MEAN CORPUSCULAR VOLUME 93.9 fl (80.0-96.0); MONO # 0.4 10^3/uL (0.0-0.8); NEUTROPHILS # 4.1 10^3/uL (1.5-8.5); NEUTROPHILS % 65.9 % (36.0-66.0); PLATELET COUNT, AUTOMATED 275 10^3/uL (150-450); WHITE BLOOD COUNT 6.2 10^3/uL (4.0-10.0)
[2022-11-01 18:27] LABS: CK-MB VALUE MASS < 1.0 NG/ML (<3.6)
[2022-11-01 18:30] LABS: ETHYL ALCOHOL (ETHANOL) 0.061 % (0.000-0.010); LIPASE 46 U/L (12-53)
[2022-11-01 18:38] LABS: BILIRUBIN,DIRECT 0.1 MG/DL (<0.4); CPK CREATINE PHOSPHOKINASE 28 U/L (34-145); INR 0.82; MB/CK RELATIVE INDEX 3.57 (< OR =4); PROTHROMBIN TIME 11.5 SECONDS (12.5-14.5)
[2022-11-01] MEDS ORDERED: THIAMINE 200MG 2ML VIAL IV ONE (18:40)
[2022-11-01 18:58] LABS: ALBUMIN 2.9 G/DL (3.2-5.2); ALKALINE PHOSPHATASE 83 U/L (46-116); ALT/SGPT 29 U/L (7.0-40); AST/SGOT 36 U/L (<34); BILIRUBIN,TOTAL 0.3 MG/DL (0.3-1.2); BLOOD UREA NITROGEN < 5 MG/DL (9-23); CALCIUM LEVEL 9.3 MG/DL (8.3-10.6); CARBON DIOXIDE LEVEL 19 MMOL/L (20-31); CHLORIDE LEVEL 95 MMOL/L (98-107); CREATININE FOR GFR 0.32 MG/DL (0.55-1.30); GLOMERULAR FILTRATION RATE > 60.0 (>45); GLUCOSE, FASTING 63 MG/DL (74-106); POTASSIUM SERUM 3.9 MMOL/L (3.5-5.1); SODIUM LEVEL 128 MMOL/L (136-145); TOTAL PROTEIN 5.8 G/DL (5.7-8.2)
[2022-11-01 19:00] LABS: RSV AMPLIFICATION NEGATIVE (NEGATIVE)
[2022-11-01] MEDS ORDERED: ALPRAZolam 0.5 MG TAB PO ONE (22:05)
[2022-11-01] MEDS ORDERED: LORazepam 2 MG TAB PO PRN (23:25)
[2022-11-01] MEDS ORDERED: ONDANSETRON 4MG 2ML VIAL IV PRN (23:25)
[2022-11-01] MEDS ORDERED: ENOXAPARIN 40MG/0.4ML SYRINGE (J1650 PER 10MG) SC ONE (23:45)
[2022-11-02] MEDS ORDERED: HOME MED LIST COMPLETE! XX SCH (00:50)
[2022-11-02] MEDS ORDERED: MULTIVITAMIN -ADULT INJECTION 10 ML, THIAMINE INJection 100 MG, FOLIC ACID 1 MG in NS 1... IV ONE (01:00)
[2022-11-02] MEDS: THIAMINE 100 MG TAB PO SCH ×2 (08:28→21:45)
[2022-11-02] MEDS: DRONABINOL 2.5MG CAP (MARINOL) PO SCH ×4 (08:51→21:46)
[2022-11-02] MEDS ORDERED: MULTIVITAMINS/MINERALS THERAP 1 TAB PO SCH (09:00)
[2022-11-02] MEDS ORDERED: FOLIC ACID 1MG TAB PO SCH (09:00)
[2022-11-02] MEDS: ALPRAZolam 0.5 MG TAB PO PRN (11:51)
[2022-11-02] MEDS: ACETAMINOPHEN TAB 650MG DOSE (2X325MG) PO PRN (11:51)
[2022-11-02] MEDS ORDERED: ENOXAPARIN 40MG/0.4ML SYRINGE (J1650 PER 10MG) SC SCH (12:00)
[2022-11-02] MEDS ORDERED: ONDA-83 PO (13:57)
[2022-11-02] MEDS ORDERED: ACET1TAB55 PO (13:57)
[2022-11-02] MEDS ORDERED: CHLO25CA PO (13:57)
[2022-11-02] MEDS ORDERED: DRON2.5C11 PO (13:57)
[2022-11-02] MEDS ORDERED: MORP1SOL5 PO (13:57)
[2022-11-02] MEDS ORDERED: HYOS125TA PO (13:57)
[2022-11-02 21:25] VITALS: BP 93/56
[2022-11-02 23:30] VITALS: BP 93/56
[2022-11-03] MEDS: THIAMINE 100 MG TAB PO SCH ×2 (08:24→20:48)
[2022-11-03] MEDS: DRONABINOL 2.5MG CAP (MARINOL) PO SCH ×4 (08:24→20:49)
[2022-11-03] MEDS: ALPRAZolam 0.5 MG TAB PO PRN ×2 (08:26→20:48)
[2022-11-03] MEDS: oxyCODONE 5MG TAB PO PRN (20:48)
[2022-11-04] MEDS: DRONABINOL 2.5MG CAP (MARINOL) PO SCH ×4 (08:04→20:53)
[2022-11-04] MEDS: THIAMINE 100 MG TAB PO SCH ×2 (08:04→20:53)
[2022-11-04] MEDS: ALPRAZolam 0.5 MG TAB PO PRN (20:53)
[2022-11-04] MEDS: oxyCODONE 5MG TAB PO PRN (20:54)
[2022-11-05] MEDS: DRONABINOL 2.5MG CAP (MARINOL) PO SCH ×4 (07:30→21:15)
[2022-11-05] MEDS: ALPRAZolam 0.5 MG TAB PO PRN (21:15)
[2022-11-05] MEDS: oxyCODONE 5MG TAB PO PRN (21:15)
[2022-11-06] MEDS: DRONABINOL 2.5MG CAP (MARINOL) PO SCH ×4 (07:23→19:49)
[2022-11-06] MEDS: ALPRAZolam 0.5 MG TAB PO PRN (19:49)
[2022-11-06] MEDS: oxyCODONE 5MG TAB PO PRN (19:49)
[2022-11-07] MEDS: DRONABINOL 2.5MG CAP (MARINOL) PO SCH ×4 (09:28→21:49)
[2022-11-07] MEDS: ALPRAZolam 0.5 MG TAB PO PRN (21:54)
[2022-11-08] MEDS: DRONABINOL 2.5MG CAP (MARINOL) PO SCH ×4 (08:15→20:12)
[2022-11-08] MEDS: oxyCODONE 5MG TAB PO PRN (08:17)
[2022-11-08] MEDS: ALPRAZolam 0.5 MG TAB PO PRN (11:36)
[2022-11-09] MEDS: DRONABINOL 2.5MG CAP (MARINOL) PO SCH ×4 (07:50→20:11)
[2022-11-09] MEDS: oxyCODONE 5MG TAB PO PRN (15:52)
[2022-11-10] MEDS: DRONABINOL 2.5MG CAP (MARINOL) PO SCH ×4 (07:58→20:04)
[2022-11-10] MEDS: oxyCODONE 5MG TAB PO PRN (20:21)
[2022-11-11] MEDS: oxyCODONE 5MG TAB PO PRN ×3 (04:28→21:16)
[2022-11-11] MEDS: DRONABINOL 2.5MG CAP (MARINOL) PO SCH ×4 (08:41→21:15)
[2022-11-11] MEDS: ALPRAZolam 0.5 MG TAB PO PRN (23:46)
[2022-11-12] MEDS: DRONABINOL 2.5MG CAP (MARINOL) PO SCH ×4 (08:55→19:58)
[2022-11-12] MEDS: oxyCODONE 5MG TAB PO PRN (17:34)
[2022-11-13] MEDS: oxyCODONE 5MG TAB PO PRN (08:10)
[2022-11-13] MEDS: DRONABINOL 2.5MG CAP (MARINOL) PO SCH ×4 (08:10→21:27)
[2022-11-14] MEDS: oxyCODONE 5MG TAB PO PRN ×3 (09:12→21:18)
[2022-11-14] MEDS: DRONABINOL 2.5MG CAP (MARINOL) PO SCH ×4 (09:12→21:17)
[2022-11-14] MEDS: ALPRAZolam 0.5 MG TAB PO PRN (11:55)
[2022-11-15] MEDS: DRONABINOL 2.5MG CAP (MARINOL) PO SCH ×4 (07:30→21:00)
[2022-11-15] MEDS: oxyCODONE 5MG TAB PO PRN ×2 (12:38→18:01)
[2022-11-15] MEDS: ALPRAZolam 0.5 MG TAB PO PRN (21:09)
[2022-11-16] MEDS: DRONABINOL 2.5MG CAP (MARINOL) PO SCH ×4 (07:30→21:14)
[2022-11-16] MEDS: oxyCODONE 5MG TAB PO PRN (15:21)
[2022-11-16] MEDS: ALPRAZolam 0.5 MG TAB PO PRN (21:13)
[2022-11-17] MEDS: DRONABINOL 2.5MG CAP (MARINOL) PO SCH ×4 (07:58→21:02)
[2022-11-17] MEDS: oxyCODONE 5MG TAB PO PRN ×2 (13:40→21:03)
[2022-11-17] MEDS: ALPRAZolam 0.5 MG TAB PO PRN (21:03)
[2022-11-18] MEDS: DRONABINOL 2.5MG CAP (MARINOL) PO SCH ×5 (06:43→21:55)
[2022-11-18] MEDS: oxyCODONE 5MG TAB PO PRN ×3 (06:44→21:55)
[2022-11-19] MEDS: DRONABINOL 2.5MG CAP (MARINOL) PO SCH ×4 (07:36→21:00)
[2022-11-19] MEDS: oxyCODONE 5MG TAB PO PRN ×3 (07:37→17:36)
[2022-11-20] MEDS: ALPRAZolam 0.5 MG TAB PO PRN (08:37)
[2022-11-20] MEDS: DRONABINOL 2.5MG CAP (MARINOL) PO SCH ×4 (08:38→19:25)
[2022-11-20] MEDS: ACETAMINOPHEN TAB 650MG DOSE (2X325MG) PO PRN (08:39)
[2022-11-21] MEDS: oxyCODONE 5MG TAB PO PRN ×4 (06:38→23:03)
[2022-11-21] MEDS: ALPRAZolam 0.5 MG TAB PO PRN ×2 (06:38→23:04)
[2022-11-21] MEDS: DRONABINOL 2.5MG CAP (MARINOL) PO SCH ×4 (09:05→22:58)
[2022-11-22] MEDS: DRONABINOL 2.5MG CAP (MARINOL) PO SCH ×2 (07:54→11:58)
[2022-11-22] MEDS: ALPRAZolam 0.5 MG TAB PO PRN ×2 (07:54→11:58)
[2022-11-22] MEDS: oxyCODONE 5MG TAB PO PRN ×2 (07:54→11:59)
[2022-11-22] MEDS ORDERED: CHLO25CA PO (14:41)
[2022-11-22] MEDS ORDERED: HYOS125TA PO (14:41)
[2022-11-22] MEDS ORDERED: ONDA-83 PO (14:41)
[2022-11-22] MEDS ORDERED: MORP1SOL5 PO (14:41)
[2022-11-22] MEDS ORDERED: DRON2.5C11 PO (14:43)
[2022-11-22] MEDS ORDERED: ACET1TAB55 PO (14:43)
== END 2022-11-22 12:46 | disposition hospice, home (50) | DRG 640 ==
LOC: M ED 16:29 → EDBD 16:29 → M ED INP 23:22 → ENRESERV 11-02 19:52 → M MSPAV 11-02 21:42
PROVIDERS: ADMIT Internal Medicine; ATTEND Internal Medicine Nephrology
DX: E43 Unspecified severe protein-calorie malnutrition (principal); R53.2 Functional quadriplegia; E87.1 Hypo-osmolality and hyponatremia; Z68.1 Body mass index [BMI] 19.9 or less, adult; R64 Cachexia; C19 Malignant neoplasm of rectosigmoid junction; E87.20 Acidosis, unspecified; R11.2 Nausea with vomiting, unspecified; E16.2 Hypoglycemia, unspecified; R63.0 Anorexia; R62.7 Adult failure to thrive; E87.8 Other disorders of electrolyte and fluid balance, not elsewhere classified; Z93.3 Colostomy status; F10.20 Alcohol dependence, uncomplicated; Z66 Do not resuscitate; J44.9 Chronic obstructive pulmonary disease, unspecified; Z92.21 Personal history of antineoplastic chemotherapy; F41.9 Anxiety disorder, unspecified; E03.9 Hypothyroidism, unspecified; Z51.5 Encounter for palliative care; F17.200 Nicotine dependence, unspecified, uncomplicated; Z79.899 Other long term (current) drug therapy